=== PATIENT | female | born 1960 | race Caucasian/White ===

== ENCOUNTER 2020-10-20 15:27 | Inpatient (IN) ==
[2020-10-20 16:47] LABS: Basophils % 0.5 %
[2020-10-20] MEDS ORDERED: 0.9 % Sodium Chloride 1,000 ML IVC ONE ×2 (16:51→17:14)
[2020-10-20 16:55] LABS: Bacteria,Urine Few per hpf (None-Few); Bilirubin,Urine Small (Negative); Blood,Urine Small (Negative); Clarity,Urine Turbid (Clear); Color,Urine Orange (Yellow); Glucose,Urine (UA) Normal (Normal); Hyaline Casts,Urine Many per lpf (None Seen); Ketones,Urine Negative (Negative); Leukocyte Esterase,Urine Small (Negative); Mucus,Urine Few per lpf (None-Few); Nitrite,Urine Negative (Negative); PH,Urine 5.5 pH Units (5.0-8.0); Protein,Urine 70 mg/dL (Neg-Trace); Specific Gravity,Urine 1.026 (1.010-1.025); Squamous Epithelial Cell,Urine Moderate per hpf (None-Few)
[2020-10-20 17:12] LABS: BUN/Creatinine Ratio 16 (6-26); Blood Urea Nitrogen 23 mg/dL (8-23); Calcium 8.3 mg/dL (8.6-10.3); Carbon Dioxide 18 mEq/L (23-29); Chloride 105 mEq/L (98-107); Glucose 93 mg/dL (70-105); Osmolality,Calculated 279 (280-300); Potassium 3.8 mEq/L (3.5-5.1); Sodium 133 mEq/L (136-145); Troponin I < 0.03 ng/mL (< 0.04); eGFR For African Americans 44 (> 60); eGFR For Non-African Americans 36 (> 60)
[2020-10-20] MEDS ORDERED: Isovue-370 500 ML BOTTLE IVP ONE ×2 (17:12→17:13)
[2020-10-20 17:26] LABS: Eosinophils # 0.1 K/mcL (0.0-0.6); Eosinophils % 1.3 %; Hematocrit 18.2 % (35.3-44.9); Hemoglobin 6.1 g/dL (11.5-15.4); Immature Granulocytes % 0.3 % (0-4); Lymphocytes # 1.8 K/mcL (0.6-4.6); Lymphocytes % 30.5 %; Mean Corpuscular HGB Conc 33.5 g/dL (31.6-35.5); Mean Corpuscular Hemoglobin 42.1 pg (28.0-33.3); Mean Corpuscular Volume 125.5 fL (83.0-100.0); Monocytes # 0.4 K/mcL (0.0-1.3); Monocytes % 5.9 %; Neutrophils # 3.7 K/mcL (1.6-8.9); Nucleated Red Blood Cells 0.8 /100 WBC (0); Platelet Count 288 K/mcL (140-400); Red Blood Count 1.45 M/mcL (3.82-4.97); Red Cell Distribution Width 20.9 % (11.5-14.5); Segmented Neutrophils % 61.5 %
[2020-10-20 17:31] LABS: Basophilic Stippling 1+ (Not Present); Polychromasia 1+ (Not Present)
[2020-10-20 17:43] LABS: Alanine Aminotransferase 7 Units/L (7-52); Albumin 3.4 g/dL (3.5-5.7); Albumin/Globulin Ratio 0.9 (1.1-2.2); Alkaline Phosphatase 99 Units/L (34-104); Aspartate Amino Transferase 19 Units/L (13-39); Bilirubin,Direct 0.5 mg/dL (0.0-0.2); Bilirubin,Indirect 1.4 mg/dL (0.0-1.0); Bilirubin,Total 1.9 mg/dL (0.3-1.0); Globulin 3.6 g/dL (2.4-3.5); Lipase 42 Units/L (11-82)
[2020-10-20] MEDS ORDERED: Naloxone 0.4 MG/ML INJ IVP PRN (19:48)
[2020-10-20] MEDS ORDERED: Ondansetron 4 MG/2 ML VIAL IVP PRN (19:48)
[2020-10-20 20:11] LABS: C-Reactive Protein < 5 mg/L (Less than 10); Lactate Dehydrogenase 361 Units/L (140-271); Phosphorous 3.3 mg/dL (2.7-4.5)
[2020-10-20] MEDS ORDERED: Pantoprazole 40 MG VIAL IVP ONE (22:04)
[2020-10-20 22:25] LABS: % Iron Saturation 42 % (15-50); Iron 87 mcg/dL (50-170); Transferrin 147 mg/dL (203-362); Uric Acid 9.3 mg/dL (2.3-7.6)
[2020-10-20] MEDS: *HR* Heparin 5,000 UNIT/ML VIAL SQ SCH (22:33)
[2020-10-20] MEDS: *HR* OxyCODONE Immed Rel 5 MG TABLET PO PRN (22:33)
[2020-10-20] MEDS: traZODone 50 MG TABLET PO SCH (22:39)
[2020-10-20 22:54] LABS: Folate 9.5 ng/mL (3.0-16.0)
[2020-10-20 23:15] LABS: Immature Reticulocyte % 33.7 % (11.0-38.0); Retculocyte # 0.17 M/mcL (0.05-0.10)
[2020-10-21 01:03] LABS: BUN/Creatinine Ratio 19 (6-26); Blood Urea Nitrogen 20 mg/dL (8-23); Calcium 7.5 mg/dL (8.6-10.3); Carbon Dioxide 19 mEq/L (23-29); Chloride 112 mEq/L (98-107); Glucose 101 mg/dL (70-105); Osmolality,Calculated 283 (280-300); Potassium 3.8 mEq/L (3.5-5.1); Sodium 135 mEq/L (136-145); eGFR For African Americans > 60 (> 60); eGFR For Non-African Americans 52 (> 60)
[2020-10-21 01:11] LABS: Hepatitis B Surface Antigen Nonreactive (Nonreactive)
[2020-10-21 01:24] LABS: Mean Platelet Volume 9.1 fL (9.4-12.4)
[2020-10-21 01:25] LABS: Mean Corpuscular HGB Conc 33.3 g/dL (31.6-35.5); Mean Corpuscular Hemoglobin 42.7 pg (28.0-33.3); Mean Corpuscular Volume 128.2 fL (83.0-100.0); Platelet Count 223 K/mcL (140-400); Red Blood Count 1.17 M/mcL (3.82-4.97); White Blood Count 4.9 K/mcL (4.3-11.1)
[2020-10-21 01:40] LABS: Hepatitis B Core IgM Nonreactive (Nonreactive)
[2020-10-21 01:41] LABS: Hepatitis A Antibody IgM Nonreactive (Nonreactive); Hepatitis C Virus Antibody Nonreactive (Nonreactive)
[2020-10-21 01:42] LABS: HIV-1&2 Antibody & p24 Ag Nonreactive (Nonreactive)
[2020-10-21] MEDS ORDERED: Cyanocobalamin (B-12) 1,000 MCG/ML VIAL IM ONE (05:02)
[2020-10-21] MEDS: *HR* OxyCODONE Immed Rel 5 MG TABLET PO PRN ×2 (05:38→20:01)
[2020-10-21] MEDS: Pantoprazole 40 MG VIAL IVP SCH ×2 (05:39→18:41)
[2020-10-21] MEDS: *HR* Heparin 5,000 UNIT/ML VIAL SQ SCH ×3 (05:39→20:04)
[2020-10-21] MEDS ORDERED: 0.9 % Sodium Chloride 250 ML ONE ×2 (07:59→12:16)
[2020-10-21] MEDS: (Desvenlafaxine Succinate [Pristiq] 100 MG) PO SCH (09:19)
[2020-10-21] MEDS: Gabapentin 300 MG CAPSULE PO SCH ×3 (09:21→20:00)
[2020-10-21] MEDS: Cyanocobalamin (B-12) 1,000 MCG TABLET PO SCH (09:21)
[2020-10-21] MEDS ORDERED: IVIG (wt based) Privigen 5 GM/50 ML INFUS..BTL IVC SCH (14:00)
[2020-10-21] MEDS ORDERED: Immune Glob, Gamma (Gammagard) 10 GM/100 ML INFUS..BTL IVC ONE (15:00)
[2020-10-21] MEDS ORDERED: Immune Glob, Gamma (Gammagard) 5 GM/50 ML INFUS..BTL IVC ONE (15:00)
[2020-10-21] MEDS ORDERED: Immune Glob, Gamma (Gammagard) 20 GM/200 ML INFUS..BTL IVC ONE ×2 (15:00)
[2020-10-21] MEDS ORDERED: predniSONE 20 MG TABLET PO SCH (17:00)
[2020-10-21 19:34] LABS: Hematocrit 20.5 % (35.3-44.9)
[2020-10-21 19:35] LABS: Hemoglobin 7.2 g/dL (11.5-15.4)
[2020-10-21] MEDS: traZODone 50 MG TABLET PO SCH (20:01)
[2020-10-21] MEDS: Budesonide/Formoterol 80/4.5 1 PUFF INH IH SCH (20:39)
[2020-10-22] MEDS: *HR* OxyCODONE Immed Rel 5 MG TABLET PO PRN ×2 (02:07→20:32)
[2020-10-22] MEDS: *HR* Heparin 5,000 UNIT/ML VIAL SQ SCH ×3 (05:08→20:33)
[2020-10-22] MEDS: Pantoprazole 40 MG VIAL IVP SCH ×2 (05:08→17:52)
[2020-10-22 05:39] LABS: BUN/Creatinine Ratio 19 (6-26); Blood Urea Nitrogen 16 mg/dL (8-23); Calcium 7.9 mg/dL (8.6-10.3); Carbon Dioxide 20 mEq/L (23-29); Chloride 111 mEq/L (98-107); Glucose 97 mg/dL (70-105); Osmolality,Calculated 281 (280-300); Potassium 3.7 mEq/L (3.5-5.1); Sodium 135 mEq/L (136-145); eGFR For African Americans > 60 (> 60); eGFR For Non-African Americans > 60 (> 60)
[2020-10-22 07:08] LABS: Hematocrit 20.6 % (35.3-44.9); Hemoglobin 7.3 g/dL (11.5-15.4); Mean Corpuscular HGB Conc 35.4 g/dL (31.6-35.5); Mean Corpuscular Hemoglobin 40.3 pg (28.0-33.3); Mean Corpuscular Volume 113.8 fL (83.0-100.0); Mean Platelet Volume 9.1 fL (9.4-12.4); Platelet Count 218 K/mcL (140-400); Red Blood Count 1.81 M/mcL (3.82-4.97); Red Cell Distribution Width 29.2 % (11.5-14.5); White Blood Count 4.5 K/mcL (4.3-11.1)
[2020-10-22] MEDS: Budesonide/Formoterol 80/4.5 1 PUFF INH IH SCH ×2 (07:51→20:09)
[2020-10-22] MEDS: Tiotropium 18 MCG inhalation IH SCH (07:52)
[2020-10-22] MEDS: Gabapentin 300 MG CAPSULE PO SCH ×3 (08:46→20:22)
[2020-10-22] MEDS: Cyanocobalamin (B-12) 1,000 MCG/ML VIAL IM SCH (08:46)
[2020-10-22] MEDS: predniSONE 20 MG TABLET PO SCH (08:46)
[2020-10-22] MEDS: Cyanocobalamin (B-12) 1,000 MCG TABLET PO SCH (08:47)
[2020-10-22] MEDS: (Desvenlafaxine Succinate [Pristiq] 100 MG) PO SCH (08:47)
[2020-10-22] MEDS ORDERED: Immune Glob, Gamma (Gammagard) 20 GM/200 ML INFUS..BTL IVC ONE (15:00)
[2020-10-22] MEDS ORDERED: Immune Glob, Gamma (Gammagard) 5 GM/50 ML INFUS..BTL IVC ONE (15:00)
[2020-10-22] MEDS ORDERED: Immune Glob, Gamma (Gammagard) 10 GM/100 ML INFUS..BTL IVC ONE (15:00)
[2020-10-22] MEDS: traZODone 50 MG TABLET PO SCH (20:22)
[2020-10-23 02:49] LABS: Hematocrit 19.8 % (35.3-44.9); Mean Corpuscular HGB Conc 35.4 g/dL (31.6-35.5); Mean Corpuscular Volume 113.1 fL (83.0-100.0); Platelet Count 227 K/mcL (140-400); Red Blood Count 1.75 M/mcL (3.82-4.97); Red Cell Distribution Width 26.6 % (11.5-14.5); White Blood Count 3.3 K/mcL (4.3-11.1)
[2020-10-23 03:09] LABS: BUN/Creatinine Ratio 20 (6-26); Blood Urea Nitrogen 18 mg/dL (8-23); Calcium 8.4 mg/dL (8.6-10.3); Carbon Dioxide 20 mEq/L (23-29); Chloride 110 mEq/L (98-107); Glucose 127 mg/dL (70-105); Osmolality,Calculated 279 (280-300); Potassium 4.1 mEq/L (3.5-5.1); Sodium 133 mEq/L (136-145); eGFR For African Americans > 60 (> 60); eGFR For Non-African Americans > 60 (> 60)
[2020-10-23] MEDS: Pantoprazole 40 MG VIAL IVP SCH ×2 (05:02→17:40)
[2020-10-23] MEDS: *HR* Heparin 5,000 UNIT/ML VIAL SQ SCH ×3 (05:02→21:23)
[2020-10-23] MEDS: (Desvenlafaxine Succinate [Pristiq] 100 MG) PO SCH (07:49)
[2020-10-23] MEDS: Gabapentin 300 MG CAPSULE PO SCH ×3 (07:49→21:23)
[2020-10-23] MEDS: Cyanocobalamin (B-12) 1,000 MCG/ML VIAL IM SCH (07:49)
[2020-10-23] MEDS: predniSONE 20 MG TABLET PO SCH (07:50)
[2020-10-23] MEDS: allopurinoL 100 MG TABLET PO SCH (07:50)
[2020-10-23] MEDS: Cyanocobalamin (B-12) 1,000 MCG TABLET PO SCH (07:52)
[2020-10-23] MEDS: Budesonide/Formoterol 80/4.5 1 PUFF INH IH SCH ×2 (07:55→22:09)
[2020-10-23] MEDS: Tiotropium 18 MCG inhalation IH SCH (07:56)
[2020-10-23] MEDS ORDERED: Immune Glob, Gamma (Gammagard) 5 GM/50 ML INFUS..BTL IVC ONE ×2 (10:15→15:00)
[2020-10-23] MEDS ORDERED: Immune Glob, Gamma (Gammagard) 10 GM/100 ML INFUS..BTL IVC ONE ×2 (11:15→15:00)
[2020-10-23 13:07] LABS: Albumin/Globulin Ratio 0.6 (1.1-2.2); Bilirubin,Direct 0.1 mg/dL (0.0-0.2); Bilirubin,Indirect 0.8 mg/dL (0.0-1.0); Bilirubin,Total 0.9 mg/dL (0.3-1.0); Globulin 5.1 g/dL (2.4-3.5); Total Protein 8.1 g/dL (6.4-8.9); Uric Acid 6.1 mg/dL (2.3-7.6)
[2020-10-23] MEDS ORDERED: Immune Glob, Gamma (Gammagard) 20 GM/200 ML INFUS..BTL IVC ONE ×2 (13:30→15:00)
[2020-10-23 13:59] LABS: Immunoglobulin A 265 mg/dL (68-408); Immunoglobulin G 1840 mg/dL (768-1632); Immunoglobulin M 84 mg/dL (35-263)
[2020-10-23] MEDS ORDERED: SODIUM CHLORIDE/NAHCO3/KCL/PEG 4,000 ML SOLN.RECON PO ONE (17:00)
[2020-10-23] MEDS: traZODone 50 MG TABLET PO SCH (21:23)
[2020-10-24] MEDS: *HR* Heparin 5,000 UNIT/ML VIAL SQ SCH ×3 (06:25→22:03)
[2020-10-24] MEDS: Pantoprazole 40 MG VIAL IVP SCH ×2 (06:27→17:26)
[2020-10-24 07:07] LABS: Hematocrit 20.5 % (35.3-44.9); Hemoglobin 7.1 g/dL (11.5-15.4); Mean Corpuscular HGB Conc 34.6 g/dL (31.6-35.5); Mean Corpuscular Hemoglobin 40.6 pg (28.0-33.3); Mean Corpuscular Volume 117.1 fL (83.0-100.0); Mean Platelet Volume 8.8 fL (9.4-12.4); Platelet Count 210 K/mcL (140-400); Red Blood Count 1.75 M/mcL (3.82-4.97); Red Cell Distribution Width 26.1 % (11.5-14.5); White Blood Count 4.6 K/mcL (4.3-11.1)
[2020-10-24 07:26] LABS: BUN/Creatinine Ratio 18 (6-26); Blood Urea Nitrogen 16 mg/dL (8-23); Calcium 8.3 mg/dL (8.6-10.3); Carbon Dioxide 23 mEq/L (23-29); Chloride 110 mEq/L (98-107); Glucose 92 mg/dL (70-105); Osmolality,Calculated 283 (280-300); Potassium 3.5 mEq/L (3.5-5.1); Sodium 136 mEq/L (136-145); eGFR For African Americans > 60 (> 60); eGFR For Non-African Americans > 60 (> 60)
[2020-10-24] MEDS: predniSONE 20 MG TABLET PO SCH (09:03)
[2020-10-24] MEDS: Gabapentin 300 MG CAPSULE PO SCH ×3 (09:03→22:04)
[2020-10-24] MEDS: (Desvenlafaxine Succinate [Pristiq] 100 MG) PO SCH (09:03)
[2020-10-24] MEDS: Cyanocobalamin (B-12) 1,000 MCG/ML VIAL IM SCH (09:04)
[2020-10-24] MEDS: Cyanocobalamin (B-12) 1,000 MCG TABLET PO SCH (09:04)
[2020-10-24] MEDS: allopurinoL 100 MG TABLET PO SCH (09:04)
[2020-10-24] MEDS: Tiotropium 18 MCG inhalation IH SCH (11:11)
[2020-10-24] MEDS: Budesonide/Formoterol 80/4.5 1 PUFF INH IH SCH ×2 (11:11→20:26)
[2020-10-24] MEDS ORDERED: Lidocaine -MPF 2% 2 ML VIAL ONE (12:45)
[2020-10-24] MEDS ORDERED: Isovue-370 500 ML BOTTLE IVP ONE (17:30)
[2020-10-24] MEDS: traZODone 50 MG TABLET PO SCH (22:04)
[2020-10-25 00:04] LABS: Alpha 2 Globulin (PEP) 0.61 g/dL (0.48-1.05); Beta Globulin (PEP) 0.58 g/dL (0.48-1.10)
[2020-10-25 04:17] LABS: Hematocrit 22.6 % (35.3-44.9); Mean Corpuscular HGB Conc 35.4 g/dL (31.6-35.5); Mean Corpuscular Hemoglobin 41.7 pg (28.0-33.3); Mean Corpuscular Volume 117.7 fL (83.0-100.0); Mean Platelet Volume 8.9 fL (9.4-12.4); Platelet Count 224 K/mcL (140-400); Red Blood Count 1.92 M/mcL (3.82-4.97); Red Cell Distribution Width 24.8 % (11.5-14.5); White Blood Count 5.4 K/mcL (4.3-11.1)
[2020-10-25 04:38] LABS: BUN/Creatinine Ratio 16 (6-26); Blood Urea Nitrogen 16 mg/dL (8-23); Calcium 7.9 mg/dL (8.6-10.3); Carbon Dioxide 21 mEq/L (23-29); Chloride 110 mEq/L (98-107); Glucose 101 mg/dL (70-105); Osmolality,Calculated 285 (280-300); Potassium 3.6 mEq/L (3.5-5.1); Sodium 137 mEq/L (136-145); eGFR For African Americans > 60 (> 60); eGFR For Non-African Americans 57 (> 60)
[2020-10-25] MEDS: Pantoprazole 40 MG VIAL IVP SCH (06:39)
[2020-10-25] MEDS: *HR* Heparin 5,000 UNIT/ML VIAL SQ SCH (06:39)
[2020-10-25] MEDS: (Desvenlafaxine Succinate [Pristiq] 100 MG) PO SCH (07:18)
[2020-10-25] MEDS: Cyanocobalamin (B-12) 1,000 MCG TABLET PO SCH (07:18)
[2020-10-25] MEDS: Gabapentin 300 MG CAPSULE PO SCH (07:18)
[2020-10-25] MEDS: predniSONE 20 MG TABLET PO SCH (07:18)
[2020-10-25] MEDS: Cyanocobalamin (B-12) 1,000 MCG/ML VIAL IM SCH (07:18)
[2020-10-25] MEDS: allopurinoL 100 MG TABLET PO SCH (07:18)
[2020-10-25] MEDS: Tiotropium 18 MCG inhalation IH SCH (07:52)
[2020-10-25] MEDS: Budesonide/Formoterol 80/4.5 1 PUFF INH IH SCH (07:52)
[2020-10-25] MEDS ORDERED: Furosemide 20 MG/2 ML VIAL IVP ONE (08:12)
[2020-10-25 09:45] LABS: IFE Reflexed IFE Done
[2020-10-25 11:23] VITALS: BP 154/78
== END 2020-10-25 15:35 | disposition home or self-care (01) | DRG 809 ==
LOC: 3ANU 15:27 → EMEROOARM 15:27 → SUATTDRO 20:13 → 3ANU 21:38
PROVIDERS: ADMIT Internal Medicine; ATTEND Internal Medicine
PROC: IRLYMPH (2020-10-21 12:00)
PROC: ENDOEBX (2020-10-24 13:00)

== ENCOUNTER 2020-12-05 21:37 | Inpatient (IN) ==
[2020-12-05] MEDS ORDERED: Ondansetron 4 MG/2 ML VIAL IVP ONE (23:17)
[2020-12-05] MEDS ORDERED: Isovue-370 500 ML BOTTLE IVP ONE (23:17)
[2020-12-05] MEDS ORDERED: 0.9 % Sodium Chloride 1,000 ML IV ONE (23:18)
[2020-12-05] MEDS ORDERED: *HR* FentaNYL (PF) 100 MCG/2 ML VIAL IVP ONE (23:18)
[2020-12-06 00:15] LABS: Basophils % 0.3 %; Eosinophils % 0.3 %; Hemoglobin 11.5 g/dL (11.5-15.4); Immature Granulocytes % 0.7 % (0-4); Lymphocytes # 1.7 K/mcL (0.6-4.6); Lymphocytes % 16.2 %; Mean Corpuscular HGB Conc 32.9 g/dL (31.6-35.5); Mean Corpuscular Hemoglobin 33.4 pg (28.0-33.3); Mean Platelet Volume 8.6 fL (9.4-12.4); Monocytes # 0.6 K/mcL (0.0-1.3); Monocytes % 5.9 %; Neutrophils # 7.9 K/mcL (1.6-8.9); Platelet Count 375 K/mcL (140-400); Red Blood Count 3.44 M/mcL (3.82-4.97); Red Cell Distribution Width 11.7 % (11.5-14.5); Segmented Neutrophils % 76.6 %; White Blood Count 10.3 K/mcL (4.3-11.1)
[2020-12-06 00:19] LABS: Mean Corpuscular Volume 101.7 fL (83.0-100.0)
[2020-12-06 00:22] LABS: Albumin 3.8 g/dL (3.5-5.7); Albumin/Globulin Ratio 1.2 (1.1-2.2); Bilirubin,Direct 0.1 mg/dL (0.0-0.2); Bilirubin,Indirect 0.5 mg/dL (0.0-1.0); Bilirubin,Total 0.6 mg/dL (0.3-1.0); Globulin 3.1 g/dL (2.4-3.5); Total Protein 6.9 g/dL (6.4-8.9)
[2020-12-06 00:23] LABS: Calcium 9.5 mg/dL (8.6-10.3); Potassium 4.6 mEq/L (3.5-5.1)
[2020-12-06 02:30] LABS: Bilirubin,Urine Negative (Negative); Blood,Urine Trace (Negative); Clarity,Urine Clear (Clear); Color,Urine Light-Yellow (Yellow); Glucose,Urine (UA) Normal (Normal); Ketones,Urine Negative (Negative); Leukocyte Esterase,Urine Negative (Negative); Mucus,Urine Few per lpf (None-Few); Nitrite,Urine Negative (Negative); PH,Urine 8.5 pH Units (5.0-8.0); Protein,Urine 50 mg/dL (Neg-Trace); Specific Gravity,Urine > 1.030 (1.010-1.025); Squamous Epithelial Cell,Urine Few per hpf (None-Few); Urobilinogen,Urine Normal (Normal); WBC,Urine 0-3 per hpf (0-3)
[2020-12-06] MEDS ORDERED: cefTRIAXone 1,000 MG in Water for inj. (sterile) 10 ML IVP ONE (03:19)
[2020-12-06 03:52] LABS: Prothrombin Time 11.4 Seconds (9.4-12.1)
[2020-12-06] MEDS ORDERED: Acetaminophen 325 MG TABLET PO PRN (04:13)
[2020-12-06] MEDS ORDERED: Ondansetron 4 MG/2 ML VIAL IVP PRN (04:13)
[2020-12-06] MEDS ORDERED: Naloxone 0.4 MG/ML INJ IVP PRN (04:13)
[2020-12-06] MEDS: *HR* HYDROcodone/Acet 5/325 mg TABLET PO PRN ×3 (08:44→23:45)
[2020-12-06 08:46] LABS: Basophils % 0.3 %; Eosinophils # 0.1 K/mcL (0.0-0.6); Eosinophils % 0.5 %; Hematocrit 35.3 % (35.3-44.9); Hemoglobin 11.2 g/dL (11.5-15.4); Immature Granulocytes % 0.4 % (0-4); Lymphocytes % 16.2 %; Mean Corpuscular HGB Conc 31.7 g/dL (31.6-35.5); Mean Corpuscular Hemoglobin 32.9 pg (28.0-33.3); Mean Corpuscular Volume 103.8 fL (83.0-100.0); Mean Platelet Volume 8.4 fL (9.4-12.4); Monocytes # 0.9 K/mcL (0.0-1.3); Neutrophils # 9.3 K/mcL (1.6-8.9); Platelet Count 409 K/mcL (140-400); Red Cell Distribution Width 11.7 % (11.5-14.5); Segmented Neutrophils % 75.6 %; White Blood Count 12.4 K/mcL (4.3-11.1)
[2020-12-06] MEDS: 0.9 % Sodium Chloride 1,000 ML IVC SCH ×2 (09:02→22:24)
[2020-12-06] MEDS: MetroNIDAZOLE 500 MG/100 ML 500 MG/100 ML BAG IVPB SCH ×3 (09:02→23:45)
[2020-12-06 11:35] LABS: Sodium, Urine 187.6 mEq/L
[2020-12-06 13:21] LABS: Uric Acid 5.7 mg/dL (2.3-7.6)
[2020-12-06 13:56] LABS: Hepatitis B Surface Antigen Nonreactive (Nonreactive)
[2020-12-06 14:28] LABS: Hepatitis C Virus Antibody Nonreactive (Nonreactive)
[2020-12-06 14:29] LABS: Hepatitis B Core IgM Nonreactive (Nonreactive)
[2020-12-06 14:30] LABS: Hepatitis A Antibody IgM Nonreactive (Nonreactive)
[2020-12-06 16:26] LABS: Protein/Creatinine Ratio,Urine 0.84 mg/mg (0.00-0.20)
[2020-12-06 16:28] LABS: Hematocrit 33.8 % (35.3-44.9); Hemoglobin 10.7 g/dL (11.5-15.4)
[2020-12-07] MEDS: cefTRIAXone 1,000 MG in Water for inj. (sterile) 10 ML IVP SCH (02:22)
[2020-12-07 04:58] LABS: Basophils % 0.3 %; Eosinophils # 0.1 K/mcL (0.0-0.6); Eosinophils % 0.5 %; Hematocrit 33.9 % (35.3-44.9); Hemoglobin 10.5 g/dL (11.5-15.4); Immature Granulocytes % 0.3 % (0-4); Lymphocytes # 1.5 K/mcL (0.6-4.6); Lymphocytes % 13.6 %; Mean Corpuscular Hemoglobin 32.3 pg (28.0-33.3); Mean Corpuscular Volume 104.3 fL (83.0-100.0); Mean Platelet Volume 8.6 fL (9.4-12.4); Monocytes # 0.8 K/mcL (0.0-1.3); Monocytes % 7.3 %; Neutrophils # 8.3 K/mcL (1.6-8.9); Platelet Count 339 K/mcL (140-400); Red Blood Count 3.25 M/mcL (3.82-4.97); Red Cell Distribution Width 11.6 % (11.5-14.5); White Blood Count 10.6 K/mcL (4.3-11.1)
[2020-12-07 05:18] LABS: Calcium 8.7 mg/dL (8.6-10.3); Potassium 4.7 mEq/L (3.5-5.1)
[2020-12-07] MEDS: MetroNIDAZOLE 500 MG/100 ML 500 MG/100 ML BAG IVPB SCH ×3 (08:58→23:26)
[2020-12-07] MEDS: 0.9 % Sodium Chloride 1,000 ML IVC SCH (11:44)
[2020-12-07] MEDS ORDERED: traZODone 50 MG TABLET PO PRN (14:12)
[2020-12-07 15:07] LABS: Hematocrit 30.3 % (35.3-44.9); Hemoglobin 9.9 g/dL (11.5-15.4)
[2020-12-07 15:41] LABS: Adenovirus Not Detected (Not Detect); Bordetella Pertussis Not Detected (Not Detect); Chlamydophila pneumoniae Not Detected (Not Detect); Coronavirus 229E Not Detected (Not Detect); Coronavirus HKU1 Not Detected (Not Detect); Coronavirus NL63 Not Detected (Not Detect); Coronavirus OC43 Not Detected (Not Detect); Human Metapneumovirus Not Detected (Not Detect); Human Rhinovirus/Enterovirus Not Detected (Not Detect); Influenza A Subtype 2009 H1 Not Detected (Not Detect); Influenza B Not Detected (Not Detect); Mycoplasma pneumoniae Not Detected (Not Detect); Parainfluenza Virus 1 Not Detected (Not Detect); Parainfluenza Virus 2 Not Detected (Not Detect); Parainfluenza Virus 3 Not Detected (Not Detect); Parainfluenza Virus 4 Not Detected (Not Detect); Respiratory Syncytial Virus Not Detected (Not Detect); SARS-CoV-2 Not Detected (Not Detect)
[2020-12-07] MEDS: *HR* OxyCODONE Immed Rel 5 MG TABLET PO PRN (19:40)
[2020-12-07] MEDS: Methylphenidate HCl 10 MG TABLET PO SCH (20:26)
[2020-12-07] MEDS ORDERED: Gabapentin 300 MG CAPSULE PO SCH (21:00)
[2020-12-07 23:59] LABS: Hematocrit 29.7 % (35.3-44.9); Hemoglobin 9.3 g/dL (11.5-15.4)
[2020-12-08] MEDS: 0.9 % Sodium Chloride 1,000 ML IVC SCH (00:33)
[2020-12-08] MEDS: *HR* OxyCODONE Immed Rel 5 MG TABLET PO PRN (01:40)
[2020-12-08] MEDS: cefTRIAXone 1,000 MG in Water for inj. (sterile) 10 ML IVP SCH (05:10)
[2020-12-08] MEDS: Methylphenidate HCl 10 MG TABLET PO SCH ×2 (05:10→16:31)
[2020-12-08 05:50] LABS: Basophils % 0.4 %; Eosinophils # 0.1 K/mcL (0.0-0.6); Eosinophils % 0.9 %; Hematocrit 31.7 % (35.3-44.9); Hemoglobin 9.9 g/dL (11.5-15.4); Immature Granulocytes % 0.3 % (0-4); Lymphocytes # 1.2 K/mcL (0.6-4.6); Lymphocytes % 12.9 %; Mean Corpuscular HGB Conc 31.2 g/dL (31.6-35.5); Mean Corpuscular Hemoglobin 32.1 pg (28.0-33.3); Mean Corpuscular Volume 102.9 fL (83.0-100.0); Mean Platelet Volume 8.6 fL (9.4-12.4); Monocytes # 0.7 K/mcL (0.0-1.3); Monocytes % 7.6 %; Neutrophils # 7.4 K/mcL (1.6-8.9); Platelet Count 315 K/mcL (140-400); Red Blood Count 3.08 M/mcL (3.82-4.97); Red Cell Distribution Width 11.7 % (11.5-14.5); Segmented Neutrophils % 77.9 %; White Blood Count 9.5 K/mcL (4.3-11.1)
[2020-12-08 05:51] LABS: INR 1.1; Prothrombin Time 12.2 Seconds (9.4-12.1)
[2020-12-08 06:09] LABS: Calcium 8.6 mg/dL (8.6-10.3); Magnesium 2.1 mg/dL (1.6-2.6); Potassium 4.1 mEq/L (3.5-5.1)
[2020-12-08] MEDS: MetroNIDAZOLE 500 MG/100 ML 500 MG/100 ML BAG IVPB SCH ×3 (08:44→16:41)
[2020-12-08] MEDS ORDERED: (Brexpiprazole [Rexulti] 1 MG) PO SCH (09:00)
[2020-12-08] MEDS ORDERED: (Desvenlafaxine Succinate [Pristiq] 100 MG) PO SCH (09:00)
[2020-12-08] MEDS ORDERED: Cyanocobalamin (B-12) 1,000 MCG TABLET PO SCH (09:00)
[2020-12-08 15:04] VITALS: BP 125/74
[2020-12-08 16:17] LABS: Hematocrit 32.7 % (35.3-44.9); Hemoglobin 10.3 g/dL (11.5-15.4)
[2020-12-08] MEDS ORDERED: Gabapentin 300 MG CAPSULE PO SCH (21:00)
== END 2020-12-08 17:00 | disposition home or self-care (01) | DRG 920 ==
LOC: 3ANU 21:37 → EMEROOARM 21:37 → SUATTDRO 12-06 03:57 → 3ANU 12-06 05:14
PROVIDERS: ADMIT Student in an Organized Health Care Education/Training Program; ATTEND Internal Medicine

== ENCOUNTER 2020-12-29 08:44 | Observation (INO) ==
[2020-12-29] MEDS ORDERED: Ondansetron 4 MG/2 ML VIAL IVP ONE ×2 (09:12→14:46)
[2020-12-29] MEDS ORDERED: 0.9 % Sodium Chloride 1,000 ML IVC ONE (09:12)
[2020-12-29 09:26] LABS: Hematocrit 29.4 % (35.3-44.9); Hemoglobin 8.7 g/dL (11.5-15.4); Mean Corpuscular HGB Conc 29.6 g/dL (31.6-35.5); Mean Corpuscular Hemoglobin 30.2 pg (28.0-33.3); Mean Corpuscular Volume 102.1 fL (83.0-100.0); Mean Platelet Volume 9.2 fL (9.4-12.4); Platelet Count 421 K/mcL (140-400); Red Blood Count 2.88 M/mcL (3.82-4.97); Red Cell Distribution Width 13.2 % (11.5-14.5); White Blood Count 8.4 K/mcL (4.3-11.1)
[2020-12-29 09:46] LABS: Alanine Aminotransferase 8 Units/L (7-52); Albumin 3.3 g/dL (3.5-5.7); Albumin/Globulin Ratio 0.9 (1.1-2.2); Alkaline Phosphatase 153 Units/L (34-104); Aspartate Amino Transferase 12 Units/L (13-39); BUN/Creatinine Ratio 12 (6-26); Bilirubin,Direct 0.1 mg/dL (0.0-0.2); Bilirubin,Indirect 0.7 mg/dL (0.0-1.0); Bilirubin,Total 0.8 mg/dL (0.3-1.0); Blood Urea Nitrogen 15 mg/dL (8-23); Calcium 8.7 mg/dL (8.6-10.3); Carbon Dioxide 19 mEq/L (23-29); Chloride 113 mEq/L (98-107); Globulin 3.6 g/dL (2.4-3.5); Glucose 106 mg/dL (70-105); Lipase 46 Units/L (11-82); Osmolality,Calculated 293 (280-300); Sodium 141 mEq/L (136-145); Total Protein 6.9 g/dL (6.4-8.9); eGFR For African Americans 52 (> 60); eGFR For Non-African Americans 43 (> 60)
[2020-12-29 11:06] LABS: Bacteria,Urine Few per hpf (None-Few); Bilirubin,Urine Negative (Negative); Blood,Urine Moderate (Negative); Clarity,Urine Clear (Clear); Color,Urine Yellow (Yellow); Glucose,Urine (UA) Normal (Normal); Hyaline Casts,Urine Many per lpf (None Seen); Ketones,Urine Negative (Negative); Leukocyte Esterase,Urine Negative (Negative); Mucus,Urine Few per lpf (None-Few); Nitrite,Urine Negative (Negative); PH,Urine 5.5 pH Units (5.0-8.0); Protein,Urine 50 mg/dL (Neg-Trace); Specific Gravity,Urine 1.023 (1.010-1.025); Squamous Epithelial Cell,Urine Few per hpf (None-Few); Urobilinogen,Urine Normal (Normal)
[2020-12-29 14:53] LABS: Troponin I < 0.03 ng/mL (< 0.04)
[2020-12-29] MEDS ORDERED: Pantoprazole 40 MG VIAL IVP ONE (15:07)
[2020-12-29] MEDS ORDERED: Prochlorperazine 10 MG/2 ML VIAL IVP PRN (16:44)
[2020-12-29] MEDS ORDERED: Naloxone 0.4 MG/ML INJ IVP PRN (16:48)
[2020-12-29] MEDS: 0.9 % Sodium Chloride 1,000 ML IVC SCH (17:02)
[2020-12-29] MEDS: cefTRIAXone 1,000 MG in 0.9 % Sodium Chloride Mini Bag 100 ML IVPB SCH (17:46)
[2020-12-29 18:17] LABS: Hematocrit 25.3 % (35.3-44.9); Hemoglobin 7.6 g/dL (11.5-15.4)
[2020-12-29] MEDS ORDERED: Acetaminophen IV 1,000 MG/100 ML BAG IVPB ONE (20:10)
[2020-12-29] MEDS: Gabapentin 300 MG CAPSULE PO SCH ×2 (20:50→21:31)
[2020-12-29 23:13] LABS: Hematocrit 24.2 % (35.3-44.9); Hemoglobin 7.2 g/dL (11.5-15.4)
[2020-12-30] MEDS: 0.9 % Sodium Chloride 1,000 ML IVC SCH (03:59)
[2020-12-30] MEDS ORDERED: Ondansetron 4 MG/2 ML VIAL IVP PRN (04:14)
[2020-12-30 04:56] LABS: Hematocrit 24.6 % (35.3-44.9); Hemoglobin 7.3 g/dL (11.5-15.4); Mean Corpuscular HGB Conc 29.7 g/dL (31.6-35.5); Mean Corpuscular Hemoglobin 30.4 pg (28.0-33.3); Mean Corpuscular Volume 102.5 fL (83.0-100.0); Mean Platelet Volume 9.2 fL (9.4-12.4); Platelet Count 290 K/mcL (140-400); Red Cell Distribution Width 13.1 % (11.5-14.5); White Blood Count 6.5 K/mcL (4.3-11.1)
[2020-12-30 05:15] LABS: INR 1.2; Prothrombin Time 14.3 Seconds (9.4-12.1)
[2020-12-30 05:18] LABS: % Iron Saturation 23 % (15-50); Activated Partial Thrombo Time 28.9 Seconds (26.0-36.0); BUN/Creatinine Ratio 10 (6-26); Blood Urea Nitrogen 11 mg/dL (8-23); Calcium 8.1 mg/dL (8.6-10.3); Carbon Dioxide 17 mEq/L (23-29); Chloride 117 mEq/L (98-107); Chol/HDL Ratio 3.2 (0-4.9); Cholesterol 77 mg/dL (< 200); Glucose 96 mg/dL (70-105); HDL Cholesterol 24 mg/dL (40-59); Iron 40 mcg/dL (50-170); LDL Cholesterol,Calculated 37 mg/dL (< 100); Magnesium 1.4 mg/dL (1.6-2.6); Osmolality,Calculated 291 (280-300); Potassium 3.7 mEq/L (3.5-5.1); Sodium 141 mEq/L (136-145); Transferrin 125 mg/dL (203-362); Triglycerides 80 mg/dL (< 150); eGFR For African Americans > 60 (> 60); eGFR For Non-African Americans 51 (> 60)
[2020-12-30 05:33] LABS: Ferritin 329 ng/mL (10-120)
[2020-12-30 05:39] LABS: Folate 8.2 ng/mL (3.0-16.0)
[2020-12-30] MEDS: Gabapentin 300 MG CAPSULE PO SCH ×2 (08:58→22:04)
[2020-12-30] MEDS: Cyanocobalamin (B-12) 1,000 MCG TABLET PO SCH (09:00)
[2020-12-30] MEDS: Pantoprazole 40 MG VIAL IVP SCH ×2 (09:10→18:03)
[2020-12-30] MEDS: cefTRIAXone 1,000 MG in 0.9 % Sodium Chloride Mini Bag 100 ML IVPB SCH (10:01)
[2020-12-30 10:15] LABS: Estimated Average Glucose 94 mg/dl; Hemoglobin A1C 4.9 %
[2020-12-30] MEDS ORDERED: traZODone 50 MG TABLET PO PRN (10:22)
[2020-12-30 10:53] LABS: Hematocrit 26.4 % (35.3-44.9); Hemoglobin 7.8 g/dL (11.5-15.4)
[2020-12-30] MEDS: metroNIDAZOLE 500 MG TABLET PO SCH ×2 (11:13→22:04)
[2020-12-30] MEDS: Methylphenidate HCl 10 MG TABLET PO SCH ×2 (14:22→14:25)
[2020-12-30] MEDS: (Desvenlafaxine Succinate [Pristiq] 100 MG) PO SCH (15:55)
[2020-12-31 02:36] LABS: Hematocrit 26.6 % (35.3-44.9); Hemoglobin 7.8 g/dL (11.5-15.4); Mean Corpuscular HGB Conc 29.3 g/dL (31.6-35.5); Mean Corpuscular Hemoglobin 29.9 pg (28.0-33.3); Mean Corpuscular Volume 101.9 fL (83.0-100.0); Mean Platelet Volume 9.3 fL (9.4-12.4); Platelet Count 288 K/mcL (140-400); Red Blood Count 2.61 M/mcL (3.82-4.97); Red Cell Distribution Width 13.2 % (11.5-14.5); White Blood Count 8.4 K/mcL (4.3-11.1)
[2020-12-31 02:43] LABS: Alanine Aminotransferase 5 Units/L (7-52); Albumin 2.8 g/dL (3.5-5.7); Alkaline Phosphatase 122 Units/L (34-104); Aspartate Amino Transferase 9 Units/L (13-39); BUN/Creatinine Ratio 9 (6-26); Bilirubin,Total 0.7 mg/dL (0.3-1.0); Blood Urea Nitrogen 9 mg/dL (8-23); Calcium 8.4 mg/dL (8.6-10.3); Carbon Dioxide 19 mEq/L (23-29); Chloride 112 mEq/L (98-107); Globulin 2.8 g/dL (2.4-3.5); Glucose 97 mg/dL (70-105); Magnesium 1.6 mg/dL (1.6-2.6); Osmolality,Calculated 283 (280-300); Phosphorous 2.9 mg/dL (2.7-4.5); Potassium 3.6 mEq/L (3.5-5.1); Sodium 137 mEq/L (136-145); Total Protein 5.6 g/dL (6.4-8.9); eGFR For African Americans > 60 (> 60); eGFR For Non-African Americans 60 (> 60)
[2020-12-31] MEDS: Pantoprazole 40 MG VIAL IVP SCH (05:07)
[2020-12-31] MEDS: Methylphenidate HCl 10 MG TABLET PO SCH (05:08)
[2020-12-31 08:07] VITALS: BP 110/72
[2020-12-31] MEDS ORDERED: PANTOPRAZOLE SODIUM 20 MG PO SCH (09:00)
[2020-12-31] MEDS ORDERED: Linezolid 600 MG TABLET PO ONE (10:01)
[2020-12-31] MEDS: cefTRIAXone 1,000 MG in 0.9 % Sodium Chloride Mini Bag 100 ML IVPB SCH (10:38)
[2020-12-31] MEDS: Gabapentin 300 MG CAPSULE PO SCH (10:40)
[2020-12-31] MEDS: metroNIDAZOLE 500 MG TABLET PO SCH (10:40)
[2020-12-31] MEDS: Cyanocobalamin (B-12) 1,000 MCG TABLET PO SCH (10:41)
[2020-12-31] MEDS: (Desvenlafaxine Succinate [Pristiq] 100 MG) PO SCH (10:42)
== END 2020-12-31 12:45 | disposition home or self-care (01) ==
LOC: 3ANU 08:44 → EMEROOARM 08:44 → SUATTDRO 15:53 → 3ANU 16:36
PROVIDERS: ADMIT Student in an Organized Health Care Education/Training Program; ATTEND Internal Medicine

== ENCOUNTER 2021-01-04 12:00 | Inpatient (IN) ==
[2021-01-04 12:49] LABS: Basophils # 0.1 K/mcL (0.0-0.2); Basophils % 0.6 %; Eosinophils # 0.1 K/mcL (0.0-0.6); Eosinophils % 0.9 %; Hematocrit 31.8 % (35.3-44.9); Immature Granulocytes % 0.3 % (0-4); Lymphocytes % 10.9 %; Mean Corpuscular HGB Conc 30.5 g/dL (31.6-35.5); Mean Corpuscular Hemoglobin 30.4 pg (28.0-33.3); Mean Corpuscular Volume 99.7 fL (83.0-100.0); Mean Platelet Volume 9.8 fL (9.4-12.4); Monocytes # 0.4 K/mcL (0.0-1.3); Monocytes % 4.5 %; Neutrophils # 7.7 K/mcL (1.6-8.9); Platelet Count 330 K/mcL (140-400); Red Blood Count 3.19 M/mcL (3.82-4.97); Red Cell Distribution Width 13.7 % (11.5-14.5); Segmented Neutrophils % 82.8 %; White Blood Count 9.3 K/mcL (4.3-11.1)
[2021-01-04 12:50] LABS: Hemoglobin 9.7 g/dL (11.5-15.4)
[2021-01-04 12:55] LABS: BUN/Creatinine Ratio 8 (6-26); Blood Urea Nitrogen 8 mg/dL (8-23); Calcium 8.4 mg/dL (8.6-10.3); Carbon Dioxide 21 mEq/L (23-29); Chloride 104 mEq/L (98-107); Glucose 124 mg/dL (70-105); Magnesium 1.2 mg/dL (1.6-2.6); Osmolality,Calculated 282 (280-300); Potassium 3.2 mEq/L (3.5-5.1); Sodium 136 mEq/L (136-145); Troponin I < 0.03 ng/mL (< 0.04); eGFR For African Americans > 60 (> 60); eGFR For Non-African Americans 56 (> 60)
[2021-01-04] MEDS ORDERED: Isovue-370 500 ML BOTTLE IVP ONE (13:26)
[2021-01-04] MEDS ORDERED: Acetaminophen 325 MG TABLET PO PRN (15:03)
[2021-01-04] MEDS ORDERED: Naloxone 0.4 MG/ML INJ IVP PRN (15:03)
[2021-01-04] MEDS ORDERED: Perflutren Lipid Microsphere 1.3 ML in 0.9 % Sodium Chloride 8.7 ML IVP PRN (15:06)
[2021-01-04] MEDS ORDERED: *HR* Metoprolol 5 MG/5 ML VIAL IVP PRN (15:06)
[2021-01-04] MEDS: Linezolid 600 MG TABLET PO SCH (20:58)
[2021-01-05 01:34] LABS: Basophils # 0.1 K/mcL (0.0-0.2); Basophils % 0.7 %; Eosinophils # 0.1 K/mcL (0.0-0.6); Eosinophils % 1.3 %; Hematocrit 28.4 % (35.3-44.9); Hemoglobin 8.6 g/dL (11.5-15.4); Immature Granulocytes % 0.3 % (0-4); Lymphocytes # 1.7 K/mcL (0.6-4.6); Lymphocytes % 22.4 %; Mean Corpuscular HGB Conc 30.3 g/dL (31.6-35.5); Mean Corpuscular Hemoglobin 29.9 pg (28.0-33.3); Mean Corpuscular Volume 98.6 fL (83.0-100.0); Mean Platelet Volume 9.7 fL (9.4-12.4); Monocytes # 0.5 K/mcL (0.0-1.3); Neutrophils # 5.1 K/mcL (1.6-8.9); Platelet Count 269 K/mcL (140-400); Red Blood Count 2.88 M/mcL (3.82-4.97); Red Cell Distribution Width 13.7 % (11.5-14.5); Segmented Neutrophils % 68.3 %; White Blood Count 7.4 K/mcL (4.3-11.1)
[2021-01-05 01:51] LABS: BUN/Creatinine Ratio 9 (6-26); Blood Urea Nitrogen 9 mg/dL (8-23); Calcium 8.2 mg/dL (8.6-10.3); Carbon Dioxide 21 mEq/L (23-29); Chloride 107 mEq/L (98-107); Glucose 109 mg/dL (70-105); Magnesium 1.8 mg/dL (1.6-2.6); Osmolality,Calculated 279 (280-300); Potassium 3.9 mEq/L (3.5-5.1); Sodium 135 mEq/L (136-145); eGFR For African Americans > 60 (> 60); eGFR For Non-African Americans 54 (> 60)
[2021-01-05] MEDS: Linezolid 600 MG TABLET PO SCH (08:21)
[2021-01-05] MEDS ORDERED: *HR* OxyCODONE Immed Rel 5 MG TABLET PO ONE (08:22)
[2021-01-05] MEDS ORDERED: DESVENLAFAXINE SUCCINATE 100 MG PO SCH (09:00)
[2021-01-05] MEDS: Cyanocobalamin (B-12) 1,000 MCG TABLET PO SCH ×2 (09:32→11:32)
[2021-01-05] MEDS: Gabapentin 300 MG CAPSULE PO SCH ×4 (09:32→19:59)
[2021-01-05 09:49] LABS: Estimated Average Glucose 88 mg/dl; Hemoglobin A1C 4.7 %
[2021-01-05] MEDS ORDERED: tiZANidine 4 MG TABLET PO PRN (10:15)
[2021-01-05] MEDS: DilTIAZem CD (24hr) 180 MG CAP.ER.24H PO SCH (11:32)
[2021-01-05] MEDS: Apixaban 5 MG TABLET PO SCH ×2 (11:32→19:59)
[2021-01-05 16:56] LABS: Bilirubin,Urine Negative (Negative); Blood,Urine Moderate (Negative); Clarity,Urine Clear (Clear); Color,Urine Yellow (Yellow); Glucose,Urine (UA) Normal (Normal); Ketones,Urine Negative (Negative); Leukocyte Esterase,Urine Negative (Negative); Mucus,Urine Few per lpf (None-Few); Nitrite,Urine Negative (Negative); PH,Urine 5.5 pH Units (5.0-8.0); Protein,Urine 70 mg/dL (Neg-Trace); Specific Gravity,Urine > 1.030 (1.010-1.025); Squamous Epithelial Cell,Urine Moderate per hpf (None-Few); Urobilinogen,Urine Normal (Normal)
[2021-01-05 17:56] LABS: Adenovirus Not Detected (Not Detect); Bordetella Pertussis Not Detected (Not Detect); Chlamydophila pneumoniae Not Detected (Not Detect); Coronavirus 229E Not Detected (Not Detect); Coronavirus HKU1 Not Detected (Not Detect); Coronavirus NL63 Not Detected (Not Detect); Coronavirus OC43 Not Detected (Not Detect); Human Metapneumovirus Not Detected (Not Detect); Human Rhinovirus/Enterovirus Not Detected (Not Detect); Influenza A Subtype 2009 H1 Not Detected (Not Detect); Influenza B Not Detected (Not Detect); Mycoplasma pneumoniae Not Detected (Not Detect); Parainfluenza Virus 1 Not Detected (Not Detect); Parainfluenza Virus 2 Not Detected (Not Detect); Parainfluenza Virus 3 Not Detected (Not Detect); Parainfluenza Virus 4 Not Detected (Not Detect); Respiratory Syncytial Virus Not Detected (Not Detect); SARS-CoV-2 Not Detected (Not Detect)
[2021-01-06 01:10] LABS: Basophils # 0.1 K/mcL (0.0-0.2); Basophils % 0.6 %; Eosinophils # 0.1 K/mcL (0.0-0.6); Eosinophils % 0.6 %; Hematocrit 26.1 % (35.3-44.9); Immature Granulocytes % 0.3 % (0-4); Lymphocytes # 1.9 K/mcL (0.6-4.6); Lymphocytes % 20.6 %; Mean Corpuscular HGB Conc 30.7 g/dL (31.6-35.5); Mean Corpuscular Hemoglobin 29.6 pg (28.0-33.3); Mean Corpuscular Volume 96.7 fL (83.0-100.0); Mean Platelet Volume 8.9 fL (9.4-12.4); Monocytes # 0.6 K/mcL (0.0-1.3); Monocytes % 6.9 %; Neutrophils # 6.4 K/mcL (1.6-8.9); Platelet Count 237 K/mcL (140-400)
[2021-01-06 01:29] LABS: Calcium 8.1 mg/dL (8.6-10.3); Potassium 4.1 mEq/L (3.5-5.1)
[2021-01-06] MEDS ORDERED: 0.9 % Sodium Chloride 1,000 ML ONE (07:15)
[2021-01-06] MEDS ORDERED: 0.9 % Sodium Chloride 1,000 ML IVC ONE ×2 (07:16→08:53)
[2021-01-06] MEDS: Cyanocobalamin (B-12) 1,000 MCG TABLET PO SCH ×2 (08:36→12:09)
[2021-01-06] MEDS: Apixaban 5 MG TABLET PO SCH ×2 (08:36→12:09)
[2021-01-06] MEDS: Gabapentin 300 MG CAPSULE PO SCH (08:36)
[2021-01-06] MEDS: DilTIAZem CD (24hr) 180 MG CAP.ER.24H PO SCH (08:45)
[2021-01-06 09:34] LABS: Basophils # 0.1 K/mcL (0.0-0.2); Basophils % 0.6 %; Eosinophils # 0.1 K/mcL (0.0-0.6); Eosinophils % 0.9 %; Hematocrit 25.6 % (35.3-44.9); Hemoglobin 7.6 g/dL (11.5-15.4); Immature Granulocytes % 0.2 % (0-4); Lymphocytes # 1.1 K/mcL (0.6-4.6); Lymphocytes % 12.7 %; Mean Corpuscular HGB Conc 29.7 g/dL (31.6-35.5); Mean Corpuscular Hemoglobin 29.9 pg (28.0-33.3); Mean Corpuscular Volume 100.8 fL (83.0-100.0); Mean Platelet Volume 9.5 fL (9.4-12.4); Monocytes # 0.7 K/mcL (0.0-1.3); Monocytes % 7.8 %; Neutrophils # 6.9 K/mcL (1.6-8.9); Platelet Count 225 K/mcL (140-400); Red Blood Count 2.54 M/mcL (3.82-4.97); Segmented Neutrophils % 77.8 %; White Blood Count 8.9 K/mcL (4.3-11.1)
[2021-01-06] MEDS ORDERED: Ipratropium/Albuterol Neb 3 ML IH PRN (09:44)
[2021-01-06] MEDS ORDERED: predniSONE 20 MG TABLET PO SCH (09:45)
[2021-01-06 09:51] LABS: ABG Base Excess -4 mEq/L (-2 to 3); ABG HCO3 21 mEq/L (21-27); ABG Oxygen Saturation 93 % (95-98); ABG PCO2 36 mmHg (35-45); ABG PH 7.37 pH Units (7.32-7.45); ABG PO2 70 mmHg (85-104); ABG TCO2 22 mEq/L (20-26)
[2021-01-06] MEDS ORDERED: Ipratropium/Albuterol Neb 3 ML IH ONE (09:53)
[2021-01-06] MEDS ORDERED: Ipratropium/Albuterol Neb 3 ML ONE (09:59)
[2021-01-06] MEDS ORDERED: Budesonide/Formoterol 160/4.5 1 PUFF INH IH SCH (10:00)
[2021-01-06] MEDS ORDERED: cefTRIAXone 1,000 MG in Water for inj. (sterile) 10 ML IVP SCH (10:00)
[2021-01-06] MEDS ORDERED: Azithromycin 500 MG in 0.9 % Sodium Chloride 250 ML IVPB SCH (10:00)
[2021-01-06] MEDS ORDERED: Levalbuterol Neb 1.25 MG/3 ML IH SCH (10:00)
[2021-01-06] MEDS ORDERED: Ipratropium/Albuterol Neb 3 ML IH SCH (10:00)
[2021-01-06 10:15] LABS: Alanine Aminotransferase < 3 Units/L (7-52); Albumin 2.6 g/dL (3.5-5.7); Alkaline Phosphatase 94 Units/L (34-104); Aspartate Amino Transferase 6 Units/L (13-39); BUN/Creatinine Ratio 11 (6-26); Bilirubin,Total 0.5 mg/dL (0.3-1.0); Blood Urea Nitrogen 19 mg/dL (8-23); Calcium 7.7 mg/dL (8.6-10.3); Carbon Dioxide 22 mEq/L (23-29); Chloride 105 mEq/L (98-107); Globulin 2.7 g/dL (2.4-3.5); Glucose 122 mg/dL (70-105); Osmolality,Calculated 280 (280-300); Potassium 5.1 mEq/L (3.5-5.1); Sodium 133 mEq/L (136-145); Total Protein 5.3 g/dL (6.4-8.9); Troponin I < 0.03 ng/mL (< 0.04); eGFR For African Americans 35 (> 60); eGFR For Non-African Americans 29 (> 60)
[2021-01-06] MEDS ORDERED: Albumin 25% 25gram/100mL 25 GM/100 ML IV.SOLN IVPB ONE (11:16)
[2021-01-06] MEDS: Ipratropium/Albuterol Neb 3 ML IH SCH ×2 (11:17→15:33)
[2021-01-06] MEDS ORDERED: methylPREDNISolone 125 MG/2 ML VIAL IVP ONE (12:02)
[2021-01-06 12:14] LABS: Immature Reticulocyte % 13.5 % (11.0-38.0); Reticulocyte % 3.9 % (1.6-2.8)
[2021-01-06 12:45] LABS: Lactate Dehydrogenase 385 Units/L (140-271)
[2021-01-06 15:00] LABS: Albumin 2.4 g/dL (3.5-5.7); Albumin/Globulin Ratio 0.9 (1.1-2.2); Bilirubin,Direct 0.1 mg/dL (0.0-0.2); Bilirubin,Indirect 0.3 mg/dL (0.0-1.0); Bilirubin,Total 0.4 mg/dL (0.3-1.0); Globulin 2.8 g/dL (2.4-3.5); Total Protein 5.2 g/dL (6.4-8.9)
[2021-01-06] MEDS ORDERED: Gabapentin 300 MG CAPSULE PO SCH (15:00)
[2021-01-06] MEDS ORDERED: MethylPREDNISolone 40 MG/ML VIAL IVP SCH (16:00)
[2021-01-06] MEDS ORDERED: Norepinephrine 4 MG/254 ML IV.SOLN IVC SCH (17:00)
[2021-01-06 18:00] VITALS: BP 97/45
== END 2021-01-06 19:40 | disposition short-term general hospital (02) | DRG 308 ==
LOC: EMEROOARM 12:00 → 2ANU 12:00 → SUATTDRO 14:47 → 2ANU 16:11 → 2NNU 01-06 12:44 → ICNU 01-06 13:28
PROVIDERS: ADMIT Internal Medicine; ATTEND Internal Medicine

== ENCOUNTER 2022-02-12 09:14 | Inpatient (IN) ==
[2022-02-12] MEDS ORDERED: 0.9 % Sodium Chloride 1,000 ML IVC ONE ×2 (09:29→11:14)
[2022-02-12 09:56] LABS: Basophils % 0.2 %; Eosinophils % 0.1 %; Hematocrit 37.1 % (35.3-44.9); Hemoglobin 11.9 g/dL (11.5-15.4); Immature Granulocytes % 0.4 % (0-4); Lymphocytes # 1.4 K/mcL (0.6-4.6); Lymphocytes % 7.5 %; Mean Corpuscular HGB Conc 32.1 g/dL (31.6-35.5); Mean Corpuscular Hemoglobin 28.2 pg (28.0-33.3); Mean Corpuscular Volume 87.9 fL (83.0-100.0); Monocytes # 0.3 K/mcL (0.0-1.3); Monocytes % 1.4 %; Neutrophils # 16.3 K/mcL (1.6-8.9); Platelet Count 563 K/mcL (140-400); Red Blood Count 4.22 M/mcL (3.82-4.97); Red Cell Distribution Width 14.7 % (11.5-14.5); Segmented Neutrophils % 90.4 %; White Blood Count 18.1 K/mcL (4.3-11.1)
[2022-02-12 10:01] LABS: INR 1.7; Prothrombin Time 19.3 Seconds (9.4-12.1)
[2022-02-12 10:15] LABS: BUN/Creatinine Ratio 9 (6-26); Blood Urea Nitrogen 11 mg/dL (8-23); Calcium 7.8 mg/dL (8.6-10.3); Carbon Dioxide 22 mEq/L (23-29); Chloride 102 mEq/L (98-107); Creatine Kinase 39 Units/L (30-223); Glucose 113 mg/dL (70-105); Magnesium 1.2 mg/dL (1.6-2.6); Osmolality,Calculated 284 (280-300); Potassium 3.1 mEq/L (3.5-5.1); Sodium 137 mEq/L (136-145); Troponin I < 0.03 ng/mL (< 0.04); eGFR For African Americans 53 (> 60); eGFR For Non-African Americans 44 (> 60)
[2022-02-12 10:29] LABS: Thyroid Stimulating Hormone 1.119 mcIU/mL (0.340-5.600)
[2022-02-12 10:54] LABS: Influenza A PCR Negative (Negative); Influenza B PCR Negative (Negative); Resp. Syncytial Virus PCR Negative (Negative)
[2022-02-12] MEDS ORDERED: Azithromycin 500 MG in 0.9 % Sodium Chloride 250 ML IVPB ONE (10:54)
[2022-02-12] MEDS ORDERED: cefTRIAXone 2,000 MG in 0.9 % Sodium Chloride 20 ML IVP ONE (10:54)
[2022-02-12] MEDS ORDERED: Magnesium Oxide 400 MG TABLET PO STA (10:56)
[2022-02-12] MEDS ORDERED: Potassium Chloride Elixir 20 MEQ/15 ML UDC PO ONE (10:56)
[2022-02-12 11:04] LABS: Bacteria,Urine Few per hpf (None-Few); Bilirubin,Urine Negative (Negative); Blood,Urine Negative (Negative); Clarity,Urine Turbid (Clear); Color,Urine Yellow (Yellow); Glucose,Urine (UA) Normal (Normal); Granular Casts,Urine Many per lpf (None Seen); Hyaline Casts,Urine Many per lpf (None Seen); Ketones,Urine Negative (Negative); Leukocyte Esterase,Urine Negative (Negative); Mucus,Urine Few per lpf (None-Few); Nitrite,Urine Negative (Negative); PH,Urine 6.5 pH Units (5.0-8.0); Protein,Urine 50 mg/dL (Neg-Trace); Specific Gravity,Urine 1.015 (1.010-1.025); Urobilinogen,Urine Normal (Normal)
[2022-02-12 11:09] LABS: SARS-CoV-2 by PCR (In House) Negative (Negative)
[2022-02-12] MEDS ORDERED: Isovue-370 500 ML BOTTLE IVP ONE (11:12)
[2022-02-12] MEDS ORDERED: Naloxone 0.4 MG/ML INJ IVP PRN (11:14)
[2022-02-12] MEDS ORDERED: Ondansetron 4 MG/2 ML VIAL IVP ONE (11:20)
[2022-02-12] MEDS ORDERED: Fluticasone Propionate Nasal 50 MCG/SPRAY BOTTLE NS PRN (14:06)
[2022-02-12] MEDS: Gabapentin 300 MG CAPSULE PO SCH ×2 (15:04→20:53)
[2022-02-12] MEDS: Simethicone 80 MG TAB.CHEW PO SCH ×2 (15:04→20:53)
[2022-02-12] MEDS: *HR* HYDROcodone/Acet 5/325 mg TABLET PO PRN (15:56)
[2022-02-12] MEDS ORDERED: MetroNIDAZOLE 500 MG/100 ML 500 MG/100 ML BAG IVPB SCH (16:00)
[2022-02-12] MEDS: Benzonatate 100 MG CAPSULE PO PRN (16:48)
[2022-02-12] MEDS ORDERED: carvediloL 6.25 MG TABLET PO SCH (17:00)
[2022-02-12] MEDS ORDERED: Cefepime HCl 2,000 MG in 0.9 % Sodium Chloride 10 ML IVP SCH (18:00)
[2022-02-12] MEDS ORDERED: Apixaban 5 MG TABLET PO SCH (21:00)
[2022-02-13] MEDS ORDERED: Vancomycin 1,250 MG/262.5 ML IV.SOLN IVPB ONE
[2022-02-13] MEDS ORDERED: Piperacillin/Tazobactam 3.375 GM in 0.9 % Sodium Chloride Mini Bag 100 ML IVPB SCH
[2022-02-13] MEDS ORDERED: Albumin 25% 25gram/100mL 25 GM/100 ML IV.SOLN IVPB ONE (00:01)
[2022-02-13] MEDS ORDERED: Ringers Solution, Lactated 1,000 ML IVC SCH ×2 (00:30→08:30)
[2022-02-13 06:00] LABS: VBG Ionized Calcium 0.97 mmol/L (1.15-1.35)
[2022-02-13 06:26] LABS: Alanine Aminotransferase 6 Units/L (7-52); Albumin 1.9 g/dL (3.5-5.7); Alkaline Phosphatase 78 Units/L (34-104); Aspartate Amino Transferase 10 Units/L (13-39); BUN/Creatinine Ratio 8 (6-26); Bilirubin,Total 0.3 mg/dL (0.3-1.0); Blood Urea Nitrogen 9 mg/dL (8-23); Calcium 6.9 mg/dL (8.6-10.3); Carbon Dioxide 21 mEq/L (23-29); Chloride 112 mEq/L (98-107); Globulin 1.9 g/dL (2.4-3.5); Glucose 88 mg/dL (70-105); Magnesium 1.1 mg/dL (1.6-2.6); Osmolality,Calculated 286 (280-300); Phosphorous 2.8 mg/dL (2.7-4.5); Potassium 4.1 mEq/L (3.5-5.1); Sodium 139 mEq/L (136-145); Total Protein 3.8 g/dL (6.4-8.9); eGFR For African Americans > 60 (> 60); eGFR For Non-African Americans 53 (> 60)
[2022-02-13 06:37] LABS: Hemoglobin 8.6 g/dL (11.5-15.4); Immature Granulocytes % 0.4 % (0-4); Mean Platelet Volume 9.6 fL (9.4-12.4); Red Cell Distribution Width 14.8 % (11.5-14.5)
[2022-02-13 06:39] LABS: Basophils # 0.1 K/mcL (0.0-0.2); Eosinophils # 0.2 K/mcL (0.0-0.6); Eosinophils % 1.9 %; Hematocrit 28.2 % (35.3-44.9); Immature Platelets 1.4 % (1.1-6.1); Lymphocytes # 0.9 K/mcL (0.6-4.6); Lymphocytes % 10.6 %; Mean Corpuscular HGB Conc 30.5 g/dL (31.6-35.5); Mean Corpuscular Volume 94.9 fL (83.0-100.0); Monocytes # 0.3 K/mcL (0.0-1.3); Monocytes % 3.5 %; Neutrophils # 6.6 K/mcL (1.6-8.9); Platelet Count 258 K/mcL (140-400); Red Blood Count 2.97 M/mcL (3.82-4.97); Segmented Neutrophils % 82.6 %
[2022-02-13] MEDS: Benzonatate 100 MG CAPSULE PO PRN (07:34)
[2022-02-13] MEDS: Simethicone 80 MG TAB.CHEW PO SCH ×4 (07:34→21:28)
[2022-02-13] MEDS: Gabapentin 300 MG CAPSULE PO SCH ×3 (07:34→21:28)
[2022-02-13] MEDS: Albumin 25% 25gram/100mL 25 GM/100 ML IV.SOLN IVPB SCH ×3 (07:35→23:48)
[2022-02-13] MEDS: Calcium Gluconate 1gm/50mL 1 GM/50 ML BAG IVPB SCH ×2 (07:35→08:18)
[2022-02-13] MEDS ORDERED: 0.9 % Sodium Chloride 500 ML IVC ONE (07:44)
[2022-02-13] MEDS ORDERED: 0.9 % Sodium Chloride 500 ML ONE (07:50)
[2022-02-13] MEDS: (Brexpiprazole [Rexulti] 1 MG Tablet) PO SCH (08:06)
[2022-02-13] MEDS: Aspirin Enteric Coated 81 MG Tablet PO SCH (08:06)
[2022-02-13] MEDS: DESVENLAFAXINE SUCCINATE PO SCH (08:06)
[2022-02-13] MEDS: Apixaban 5 MG TABLET PO SCH ×2 (08:06→21:29)
[2022-02-13] MEDS: Cefepime HCl 2,000 MG in 0.9 % Sodium Chloride 10 ML IVP SCH ×2 (08:22→16:55)
[2022-02-13 09:17] LABS: Hematocrit 26.2 % (35.3-44.9); Hemoglobin 8.4 g/dL (11.5-15.4)
[2022-02-13 09:43] LABS: ABG Base Excess -5 mEq/L (-2 to 3); ABG HCO3 19 mEq/L (21-27); ABG Oxygen Saturation 97 % (95-98); ABG PCO2 27 mmHg (35-45); ABG PH 7.45 pH Units (7.32-7.45); ABG PO2 81 mmHg (85-104); ABG TCO2 20 mEq/L (20-26); Blood Gas Modality PC
[2022-02-13] MEDS: Ringers Solution, Lactated 1,000 ML IVC SCH ×2 (11:26→16:53)
[2022-02-13 13:46] LABS: Adenovirus F 40/41 PCR Not detected (Not detect); Astrovirus PCR Not detected (Not detect); Campylobacter by PCR Not detected (Not detect); Cryptosporidium by PCR Not detected (Not detect); Cyclospora cayetanensis PCR Not detected (Not detect); E. coli O157 by PCR Not detected (Not detect); Entamoeba histolytica PCR Not detected (Not detect); Enteroaggregative E.coli(EAEC) Not detected (Not detect); Enteropathogenic E.coli(EPEC) Not detected (Not detect); Enterotoxigenic E.coli (ETEC) Not detected (Not detect); Giardia lamblia PCR Not detected (Not detect); Norovirus GI/GII PCR Not detected (Not detect); Plesiomonas shigelloides PCR Not detected (Not detect); Rotavirus A PCR Not detected (Not detect); Salmonella PCR Not detected (Not detect); Sapovirus PCR Not detected (Not detect); Shig/EnteroinvasiveE coli EIEC Not detected (Not detect); Shigalike tox-prod E coli STEC Not detected (Not detect); Vibrio PCR Not detected (Not detect); Vibrio cholerae PCR Not detected (Not detect); Yersinia enterocolitica PCR Not detected (Not detect)
[2022-02-13 14:17] LABS: C.difficile Toxin A/B Gene PCR DETECTED (Not detect)
[2022-02-13] MEDS: Melatonin 3 MG TABLET PO PRN (21:29)
[2022-02-13] MEDS: Nystatin POWDER 30 GM BOTTLE TP SCH (21:29)
[2022-02-14] MEDS: Cefepime HCl 2,000 MG in 0.9 % Sodium Chloride 10 ML IVP SCH (05:37)
[2022-02-14 07:28] LABS: Basophils # 0.1 K/mcL (0.0-0.2); Basophils % 0.8 %; Eosinophils # 0.2 K/mcL (0.0-0.6); Eosinophils % 2.8 %; Hematocrit 26.4 % (35.3-44.9); Hemoglobin 8.3 g/dL (11.5-15.4); Immature Granulocytes % 0.2 % (0-4); Lymphocytes # 1.1 K/mcL (0.6-4.6); Lymphocytes % 16.2 %; Mean Corpuscular HGB Conc 31.4 g/dL (31.6-35.5); Mean Corpuscular Volume 92.3 fL (83.0-100.0); Mean Platelet Volume 9.3 fL (9.4-12.4); Monocytes # 0.3 K/mcL (0.0-1.3); Monocytes % 4.9 %; Neutrophils # 4.9 K/mcL (1.6-8.9); Platelet Count 357 K/mcL (140-400); Red Blood Count 2.86 M/mcL (3.82-4.97); Red Cell Distribution Width 14.8 % (11.5-14.5); Segmented Neutrophils % 75.1 %; White Blood Count 6.5 K/mcL (4.3-11.1)
[2022-02-14] MEDS: Aspirin Enteric Coated 81 MG Tablet PO SCH (07:33)
[2022-02-14] MEDS: Albumin 25% 25gram/100mL 25 GM/100 ML IV.SOLN IVPB SCH ×3 (07:33→09:51)
[2022-02-14] MEDS: Nystatin POWDER 30 GM BOTTLE TP SCH ×2 (07:34→22:39)
[2022-02-14] MEDS: Gabapentin 300 MG CAPSULE PO SCH ×3 (07:34→22:38)
[2022-02-14] MEDS: Apixaban 5 MG TABLET PO SCH ×2 (07:34→22:38)
[2022-02-14] MEDS: Simethicone 80 MG TAB.CHEW PO SCH ×4 (07:34→22:37)
[2022-02-14] MEDS: (Brexpiprazole [Rexulti] 1 MG Tablet) PO SCH (07:35)
[2022-02-14] MEDS: DESVENLAFAXINE SUCCINATE PO SCH (07:35)
[2022-02-14] MEDS ORDERED: Ringers Solution, Lactated 1,000 ML IVC SCH (07:45)
[2022-02-14 07:55] LABS: BUN/Creatinine Ratio 7 (6-26); Blood Urea Nitrogen 6 mg/dL (8-23); Calcium 7.7 mg/dL (8.6-10.3); Carbon Dioxide 20 mEq/L (23-29); Chloride 114 mEq/L (98-107); Glucose 84 mg/dL (70-105); Magnesium 1.4 mg/dL (1.6-2.6); Osmolality,Calculated 281 (280-300); Phosphorous 2.3 mg/dL (2.7-4.5); Potassium 4.1 mEq/L (3.5-5.1); Sodium 137 mEq/L (136-145); eGFR For African Americans > 60 (> 60); eGFR For Non-African Americans > 60 (> 60)
[2022-02-14] MEDS: Lactobacillus 1 EACH CAP.SPRINK PO SCH (09:46)
[2022-02-14] MEDS ORDERED: Cefepime HCl 1,000 MG in 0.9 % Sodium Chloride 10 ML IVP SCH (16:00)
[2022-02-14] MEDS: Cefepime HCl 2,000 MG in 0.9 % Sodium Chloride Mini Bag 100 ML IVPB SCH (16:08)
[2022-02-15] MEDS: Cefepime HCl 2,000 MG in 0.9 % Sodium Chloride Mini Bag 100 ML IVPB SCH ×4 (00:47→23:26)
[2022-02-15] MEDS: Vancomycin 1,250 MG/262.5 ML IV.SOLN IVPB SCH (00:48)
[2022-02-15] MEDS: Lactobacillus 1 EACH CAP.SPRINK PO SCH (07:58)
[2022-02-15] MEDS: Simethicone 80 MG TAB.CHEW PO SCH ×4 (07:58→20:01)
[2022-02-15] MEDS: Gabapentin 300 MG CAPSULE PO SCH ×3 (07:59→20:01)
[2022-02-15] MEDS: Apixaban 5 MG TABLET PO SCH ×2 (07:59→20:01)
[2022-02-15] MEDS: Aspirin Enteric Coated 81 MG Tablet PO SCH (07:59)
[2022-02-15] MEDS: (Brexpiprazole [Rexulti] 1 MG Tablet) PO SCH (08:00)
[2022-02-15] MEDS: Nystatin POWDER 30 GM BOTTLE TP SCH ×2 (08:00→20:05)
[2022-02-15] MEDS: DESVENLAFAXINE SUCCINATE PO SCH (09:55)
[2022-02-15] MEDS: metroNIDAZOLE 500 MG TABLET PO SCH ×3 (10:01→20:01)
[2022-02-15] MEDS: *HR* HYDROcodone/Acet 5/325 mg TABLET PO PRN (10:47)
[2022-02-15] MEDS ORDERED: Ringers Solution, Lactated 1,000 ML IVC SCH (11:00)
[2022-02-15 11:44] LABS: Basophils % 0.6 %; Eosinophils # 0.2 K/mcL (0.0-0.6); Eosinophils % 2.7 %; Hematocrit 26.4 % (35.3-44.9); Hemoglobin 8.3 g/dL (11.5-15.4); Immature Granulocytes % 0.5 % (0-4); Lymphocytes # 1.1 K/mcL (0.6-4.6); Lymphocytes % 16.7 %; Mean Corpuscular HGB Conc 31.4 g/dL (31.6-35.5); Mean Corpuscular Hemoglobin 28.8 pg (28.0-33.3); Mean Corpuscular Volume 91.7 fL (83.0-100.0); Mean Platelet Volume 9.3 fL (9.4-12.4); Monocytes # 0.4 K/mcL (0.0-1.3); Monocytes % 5.9 %; Neutrophils # 4.9 K/mcL (1.6-8.9); Platelet Count 400 K/mcL (140-400); Red Blood Count 2.88 M/mcL (3.82-4.97); Red Cell Distribution Width 14.6 % (11.5-14.5); Segmented Neutrophils % 73.6 %; White Blood Count 6.7 K/mcL (4.3-11.1)
[2022-02-15] MEDS: Magnesium Oxide 400 MG TABLET PO SCH ×2 (11:49→20:01)
[2022-02-15 13:39] LABS: BUN/Creatinine Ratio 12 (6-26); Blood Urea Nitrogen 9 mg/dL (8-23); Calcium 7.9 mg/dL (8.6-10.3); Carbon Dioxide 21 mEq/L (23-29); Chloride 110 mEq/L (98-107); Glucose 100 mg/dL (70-105); Magnesium 1.5 mg/dL (1.6-2.6); Osmolality,Calculated 281 (280-300); Phosphorous 1.8 mg/dL (2.7-4.5); Potassium 3.7 mEq/L (3.5-5.1); Sodium 136 mEq/L (136-145); eGFR For African Americans > 60 (> 60); eGFR For Non-African Americans > 60 (> 60)
[2022-02-15] MEDS ORDERED: 0.9 % Sodium Chloride 250 ML IV ONE (17:24)
[2022-02-15] MEDS: Acetaminophen 325 MG TABLET PO PRN (18:41)
[2022-02-16] MEDS: Vancomycin 1,250 MG/262.5 ML IV.SOLN IVPB SCH (00:59)
[2022-02-16] MEDS: Cefepime HCl 2,000 MG in 0.9 % Sodium Chloride Mini Bag 100 ML IVPB SCH ×2 (08:51→18:43)
[2022-02-16] MEDS: Simethicone 80 MG TAB.CHEW PO SCH ×4 (08:54→19:26)
[2022-02-16 09:25] LABS: Hematocrit 29.2 % (35.3-44.9); Hemoglobin 9.5 g/dL (11.5-15.4)
[2022-02-16 09:44] LABS: BUN/Creatinine Ratio 10 (6-26); Blood Urea Nitrogen 7 mg/dL (8-23); Calcium 8.4 mg/dL (8.6-10.3); Carbon Dioxide 24 mEq/L (23-29); Chloride 112 mEq/L (98-107); Glucose 106 mg/dL (70-105); Magnesium 1.5 mg/dL (1.6-2.6); Osmolality,Calculated 290 (280-300); Phosphorous 1.8 mg/dL (2.7-4.5); Potassium 3.3 mEq/L (3.5-5.1); Sodium 141 mEq/L (136-145); eGFR For African Americans > 60 (> 60); eGFR For Non-African Americans > 60 (> 60)
[2022-02-16 10:30] LABS: Immunoglobulin A 199 mg/dL (68-408); Immunoglobulin G 831 mg/dL (768-1632); Immunoglobulin M 15 mg/dL (35-263)
[2022-02-16] MEDS: Apixaban 5 MG TABLET PO SCH ×2 (11:07→19:26)
[2022-02-16] MEDS: Folic Acid 1 MG TABLET PO SCH (11:08)
[2022-02-16] MEDS: Aspirin Enteric Coated 81 MG Tablet PO SCH (11:08)
[2022-02-16] MEDS: Lactobacillus 1 EACH CAP.SPRINK PO SCH (11:09)
[2022-02-16] MEDS: Magnesium Oxide 400 MG TABLET PO SCH ×2 (11:09→19:26)
[2022-02-16] MEDS: metroNIDAZOLE 500 MG TABLET PO SCH ×3 (11:10→19:26)
[2022-02-16] MEDS: Gabapentin 300 MG CAPSULE PO SCH ×3 (11:10→19:26)
[2022-02-16] MEDS: Cholecalciferol (D-3) 1,000 UNIT (25MCG) TABLET PO SCH (11:11)
[2022-02-16] MEDS: Nystatin POWDER 30 GM BOTTLE TP SCH ×2 (11:14→19:27)
[2022-02-16] MEDS ORDERED: Potassium Phosphate 44 MEQ in 0.9 % Sodium Chloride 250 ML IVPB ONE (12:03)
[2022-02-16] MEDS: Ondansetron ODT 4 MG TAB.RAPDIS SL PRN (12:28)
[2022-02-16] MEDS: *HR* HYDROcodone/Acet 5/325 mg TABLET PO PRN (13:52)
[2022-02-16] MEDS: (Brexpiprazole [Rexulti] 1 MG Tablet) PO SCH (13:59)
[2022-02-16] MEDS: DESVENLAFAXINE SUCCINATE PO SCH (13:59)
[2022-02-17] MEDS: Cefepime HCl 2,000 MG in 0.9 % Sodium Chloride Mini Bag 100 ML IVPB SCH ×4 (00:07→23:23)
[2022-02-17] MEDS: Aspirin Enteric Coated 81 MG Tablet PO SCH (08:05)
[2022-02-17] MEDS: Gabapentin 300 MG CAPSULE PO SCH ×3 (08:05→19:57)
[2022-02-17] MEDS: Lactobacillus 1 EACH CAP.SPRINK PO SCH (08:05)
[2022-02-17] MEDS: metroNIDAZOLE 500 MG TABLET PO SCH ×3 (08:05→23:23)
[2022-02-17] MEDS: Simethicone 80 MG TAB.CHEW PO SCH ×4 (08:05→19:57)
[2022-02-17] MEDS: Apixaban 5 MG TABLET PO SCH ×2 (08:06→19:57)
[2022-02-17] MEDS: carvediloL 6.25 MG TABLET PO SCH ×2 (08:06→16:12)
[2022-02-17] MEDS: Cholecalciferol (D-3) 1,000 UNIT (25MCG) TABLET PO SCH (08:06)
[2022-02-17] MEDS: Magnesium Oxide 400 MG TABLET PO SCH ×2 (08:06→19:57)
[2022-02-17] MEDS: Folic Acid 1 MG TABLET PO SCH (08:06)
[2022-02-17] MEDS: (Brexpiprazole [Rexulti] 1 MG Tablet) PO SCH (08:07)
[2022-02-17] MEDS: DESVENLAFAXINE SUCCINATE PO SCH (08:07)
[2022-02-17 08:44] LABS: Magnesium 1.7 mg/dL (1.6-2.6); Phosphorous 3.3 mg/dL (2.7-4.5)
[2022-02-17 08:45] LABS: BUN/Creatinine Ratio 8 (6-26); Blood Urea Nitrogen 6 mg/dL (8-23); Carbon Dioxide 27 mEq/L (23-29); Chloride 110 mEq/L (98-107); Glucose 94 mg/dL (70-105); Osmolality,Calculated 287 (280-300); Potassium 3.8 mEq/L (3.5-5.1); Sodium 140 mEq/L (136-145); eGFR For African Americans > 60 (> 60); eGFR For Non-African Americans > 60 (> 60)
[2022-02-17] MEDS: Nystatin POWDER 30 GM BOTTLE TP SCH (09:36)
[2022-02-17] MEDS: *HR* HYDROcodone/Acet 5/325 mg TABLET PO PRN (17:22)
[2022-02-18] MEDS: Nystatin POWDER 30 GM BOTTLE TP SCH ×3 (00:08→22:35)
[2022-02-18] MEDS: *HR* HYDROcodone/Acet 5/325 mg TABLET PO PRN ×2 (02:00→15:30)
[2022-02-18 05:42] LABS: Hematocrit 26.7 % (35.3-44.9); Hemoglobin 8.3 g/dL (11.5-15.4)
[2022-02-18 05:59] LABS: BUN/Creatinine Ratio 9 (6-26); Blood Urea Nitrogen 6 mg/dL (8-23); Calcium 8.1 mg/dL (8.6-10.3); Carbon Dioxide 23 mEq/L (23-29); Chloride 110 mEq/L (98-107); Glucose 92 mg/dL (70-105); Magnesium 1.5 mg/dL (1.6-2.6); Osmolality,Calculated 283 (280-300); Phosphorous 2.5 mg/dL (2.7-4.5); Potassium 3.5 mEq/L (3.5-5.1); Sodium 138 mEq/L (136-145); eGFR For African Americans > 60 (> 60); eGFR For Non-African Americans > 60 (> 60)
[2022-02-18] MEDS ORDERED: Magnesium Sulfate 1 GM/102 ML PIGGYBACK IVPB ONE (07:25)
[2022-02-18] MEDS: Vancomycin 1,250 MG/262.5 ML IV.SOLN IVPB SCH (07:31)
[2022-02-18] MEDS: Cefepime HCl 2,000 MG in 0.9 % Sodium Chloride Mini Bag 100 ML IVPB SCH ×2 (08:30→15:25)
[2022-02-18] MEDS: Aspirin Enteric Coated 81 MG Tablet PO SCH (08:30)
[2022-02-18] MEDS: Cholecalciferol (D-3) 1,000 UNIT (25MCG) TABLET PO SCH (08:30)
[2022-02-18] MEDS: carvediloL 6.25 MG TABLET PO SCH ×2 (08:30→15:25)
[2022-02-18] MEDS: Magnesium Oxide 400 MG TABLET PO SCH ×2 (08:30→22:34)
[2022-02-18] MEDS: Lactobacillus 1 EACH CAP.SPRINK PO SCH (08:31)
[2022-02-18] MEDS: Folic Acid 1 MG TABLET PO SCH (08:31)
[2022-02-18] MEDS: Simethicone 80 MG TAB.CHEW PO SCH ×4 (08:31→22:34)
[2022-02-18] MEDS: metroNIDAZOLE 500 MG TABLET PO SCH ×5 (08:31→22:34)
[2022-02-18] MEDS: Apixaban 5 MG TABLET PO SCH ×2 (08:31→22:34)
[2022-02-18] MEDS: Gabapentin 300 MG CAPSULE PO SCH ×3 (08:32→22:34)
[2022-02-18] MEDS: DESVENLAFAXINE SUCCINATE PO SCH (08:34)
[2022-02-18] MEDS: (Brexpiprazole [Rexulti] 1 MG Tablet) PO SCH (08:34)
[2022-02-18 14:22] LABS: Immature Reticulocyte % 20.8 % (11.0-38.0); Retculocyte # 0.05 M/mcL (0.05-0.10); Reticulocyte % 1.5 % (1.6-2.8)
[2022-02-18 14:45] LABS: % Iron Saturation 23 % (15-50); Iron 25 mcg/dL (50-170); Lactate Dehydrogenase 190 Units/L (140-271); Transferrin 79 mg/dL (203-362)
[2022-02-18 15:03] LABS: Ferritin 129 ng/mL (10-120)
[2022-02-18] MEDS: Ondansetron ODT 4 MG TAB.RAPDIS SL PRN (19:34)
[2022-02-19] MEDS: Cefepime HCl 2,000 MG in 0.9 % Sodium Chloride Mini Bag 100 ML IVPB SCH ×2 (00:01→10:56)
[2022-02-19] MEDS: *HR* HYDROcodone/Acet 5/325 mg TABLET PO PRN ×3 (00:43→18:22)
[2022-02-19 03:04] LABS: BUN/Creatinine Ratio 9 (6-26); Blood Urea Nitrogen 6 mg/dL (8-23); Calcium 8.3 mg/dL (8.6-10.3); Carbon Dioxide 23 mEq/L (23-29); Chloride 110 mEq/L (98-107); Glucose 89 mg/dL (70-105); Magnesium 1.7 mg/dL (1.6-2.6); Osmolality,Calculated 283 (280-300); Phosphorous 2.5 mg/dL (2.7-4.5); Potassium 3.6 mEq/L (3.5-5.1); Sodium 138 mEq/L (136-145); eGFR For African Americans > 60 (> 60); eGFR For Non-African Americans > 60 (> 60)
[2022-02-19] MEDS: Ondansetron ODT 4 MG TAB.RAPDIS SL PRN (08:28)
[2022-02-19 10:03] LABS: White Blood Count 6.7 K/mcL (4.3-11.1)
[2022-02-19 10:04] LABS: Basophils # 0.1 K/mcL (0.0-0.2); Basophils % 1.5 %; Eosinophils # 0.2 K/mcL (0.0-0.6); Eosinophils % 2.4 %; Hemoglobin 8.5 g/dL (11.5-15.4); Immature Granulocytes % 0.3 % (0-4); Lymphocytes # 1.5 K/mcL (0.6-4.6); Lymphocytes % 22.3 %; Mean Corpuscular HGB Conc 31.5 g/dL (31.6-35.5); Mean Corpuscular Hemoglobin 28.1 pg (28.0-33.3); Mean Corpuscular Volume 89.1 fL (83.0-100.0); Mean Platelet Volume 9.3 fL (9.4-12.4); Monocytes # 0.6 K/mcL (0.0-1.3); Monocytes % 8.6 %; Neutrophils # 4.4 K/mcL (1.6-8.9); Platelet Count 392 K/mcL (140-400); Red Blood Count 3.03 M/mcL (3.82-4.97); Red Cell Distribution Width 15.3 % (11.5-14.5); Segmented Neutrophils % 64.9 %
[2022-02-19] MEDS: carvediloL 6.25 MG TABLET PO SCH ×2 (10:55→16:53)
[2022-02-19] MEDS: Simethicone 80 MG TAB.CHEW PO SCH ×3 (10:55→20:28)
[2022-02-19] MEDS: Aspirin Enteric Coated 81 MG Tablet PO SCH (10:56)
[2022-02-19] MEDS: metroNIDAZOLE 500 MG TABLET PO SCH ×3 (10:56→22:26)
[2022-02-19] MEDS: Lactobacillus 1 EACH CAP.SPRINK PO SCH (10:56)
[2022-02-19] MEDS: Folic Acid 1 MG TABLET PO SCH (10:56)
[2022-02-19] MEDS: Magnesium Oxide 400 MG TABLET PO SCH ×2 (10:57→20:29)
[2022-02-19] MEDS: (Brexpiprazole [Rexulti] 1 MG Tablet) PO SCH (10:58)
[2022-02-19] MEDS: Gabapentin 300 MG CAPSULE PO SCH ×3 (10:58→20:28)
[2022-02-19] MEDS: DESVENLAFAXINE SUCCINATE PO SCH (10:58)
[2022-02-19] MEDS: Cholecalciferol (D-3) 1,000 UNIT (25MCG) TABLET PO SCH (10:59)
[2022-02-19] MEDS: Apixaban 5 MG TABLET PO SCH ×2 (13:47→20:28)
[2022-02-19] MEDS ORDERED: Iron Sucrose Complex 400 MG in 0.9 % Sodium Chloride 250 ML IVPB ONE (14:01)
[2022-02-19] MEDS: Nystatin POWDER 30 GM BOTTLE TP SCH ×2 (14:20→20:29)
[2022-02-19] MEDS: Ondansetron 4 MG/2 ML VIAL IVP PRN (16:19)
[2022-02-19] MEDS ORDERED: Cefepime HCl 2,000 MG in 0.9 % Sodium Chloride 10 ML IVPB SCH (16:30)
[2022-02-19] MEDS: Cefepime HCl 2,000 MG in 0.9 % Sodium Chloride 10 ML IVPB SCH (18:57)
[2022-02-20] MEDS: Cefepime HCl 2,000 MG in 0.9 % Sodium Chloride 10 ML IVPB SCH ×3 (00:49→18:01)
[2022-02-20] MEDS ORDERED: *HR* Metoprolol 5 MG/5 ML VIAL IVP ONE (01:11)
[2022-02-20] MEDS: Lactobacillus 1 EACH CAP.SPRINK PO SCH (08:06)
[2022-02-20] MEDS: Gabapentin 300 MG CAPSULE PO SCH ×3 (08:06→19:22)
[2022-02-20] MEDS: Cholecalciferol (D-3) 1,000 UNIT (25MCG) TABLET PO SCH (08:06)
[2022-02-20] MEDS: carvediloL 6.25 MG TABLET PO SCH ×2 (08:06→18:02)
[2022-02-20] MEDS: Magnesium Oxide 400 MG TABLET PO SCH ×2 (08:07→19:22)
[2022-02-20] MEDS: Aspirin Enteric Coated 81 MG Tablet PO SCH (08:07)
[2022-02-20] MEDS: Folic Acid 1 MG TABLET PO SCH (08:07)
[2022-02-20] MEDS: metroNIDAZOLE 500 MG TABLET PO SCH ×3 (08:07→19:22)
[2022-02-20] MEDS: Apixaban 5 MG TABLET PO SCH ×2 (08:07→19:22)
[2022-02-20] MEDS: Simethicone 80 MG TAB.CHEW PO SCH ×4 (08:08→19:22)
[2022-02-20] MEDS: DESVENLAFAXINE SUCCINATE PO SCH (08:09)
[2022-02-20] MEDS: (Brexpiprazole [Rexulti] 1 MG Tablet) PO SCH (08:09)
[2022-02-20] MEDS: Nystatin POWDER 30 GM BOTTLE TP SCH ×2 (11:37→19:23)
[2022-02-20] MEDS: Ondansetron 4 MG/2 ML VIAL IVP PRN (23:28)
[2022-02-20] MEDS ORDERED: 0.9 % Sodium Chloride 500 ML IVC ONE (23:30)
[2022-02-21] MEDS: Cefepime HCl 2,000 MG in 0.9 % Sodium Chloride 10 ML IVPB SCH ×3 (01:31→16:01)
[2022-02-21] MEDS ORDERED: 0.9 % Sodium Chloride 250 ML IVC ONE (03:59)
[2022-02-21 04:57] LABS: BUN/Creatinine Ratio 10 (6-26); Blood Urea Nitrogen 7 mg/dL (8-23); Calcium 8.2 mg/dL (8.6-10.3); Carbon Dioxide 24 mEq/L (23-29); Chloride 110 mEq/L (98-107); Glucose 98 mg/dL (70-105); Magnesium 1.6 mg/dL (1.6-2.6); Osmolality,Calculated 288 (280-300); Phosphorous 2.8 mg/dL (2.7-4.5); Potassium 3.4 mEq/L (3.5-5.1); Sodium 140 mEq/L (136-145); eGFR For African Americans > 60 (> 60); eGFR For Non-African Americans > 60 (> 60)
[2022-02-21] MEDS: Simethicone 80 MG TAB.CHEW PO SCH ×4 (05:48→22:16)
[2022-02-21] MEDS: Gabapentin 300 MG CAPSULE PO SCH ×3 (09:45→22:18)
[2022-02-21] MEDS: carvediloL 6.25 MG TABLET PO SCH ×2 (09:46→16:00)
[2022-02-21] MEDS: Cholecalciferol (D-3) 1,000 UNIT (25MCG) TABLET PO SCH (09:46)
[2022-02-21] MEDS: Apixaban 5 MG TABLET PO SCH ×2 (09:46→22:17)
[2022-02-21] MEDS: metroNIDAZOLE 500 MG TABLET PO SCH ×3 (09:46→22:16)
[2022-02-21] MEDS: Lactobacillus 1 EACH CAP.SPRINK PO SCH (09:46)
[2022-02-21] MEDS: Magnesium Oxide 400 MG TABLET PO SCH ×2 (09:46→22:17)
[2022-02-21] MEDS: Aspirin Enteric Coated 81 MG Tablet PO SCH (09:46)
[2022-02-21] MEDS: Folic Acid 1 MG TABLET PO SCH (09:46)
[2022-02-21] MEDS: Nystatin POWDER 30 GM BOTTLE TP SCH (09:47)
[2022-02-21] MEDS: *HR* HYDROcodone/Acet 5/325 mg TABLET PO PRN ×2 (09:47→22:18)
[2022-02-21] MEDS: (Brexpiprazole [Rexulti] 1 MG Tablet) PO SCH (09:47)
[2022-02-21] MEDS: DESVENLAFAXINE SUCCINATE PO SCH (09:47)
[2022-02-21 10:28] LABS: Immunoglobulin A 203 mg/dL (68-408); Immunoglobulin G 868 mg/dL (768-1632); Immunoglobulin M 25 mg/dL (35-263)
[2022-02-22 02:59] LABS: Hematocrit 25.7 % (35.3-44.9)
[2022-02-22 03:25] LABS: BUN/Creatinine Ratio 13 (6-26); Blood Urea Nitrogen 9 mg/dL (8-23); Calcium 8.2 mg/dL (8.6-10.3); Carbon Dioxide 23 mEq/L (23-29); Chloride 109 mEq/L (98-107); Glucose 95 mg/dL (70-105); Magnesium 1.5 mg/dL (1.6-2.6); Osmolality,Calculated 282 (280-300); Phosphorous 2.7 mg/dL (2.7-4.5); Sodium 137 mEq/L (136-145); eGFR For African Americans > 60 (> 60); eGFR For Non-African Americans > 60 (> 60)
[2022-02-22] MEDS: Nystatin POWDER 30 GM BOTTLE TP SCH ×3 (05:46→21:06)
[2022-02-22] MEDS: Cefepime HCl 2,000 MG in 0.9 % Sodium Chloride 10 ML IVPB SCH ×3 (05:53→16:52)
[2022-02-22] MEDS: metroNIDAZOLE 500 MG TABLET PO SCH ×3 (09:10→20:46)
[2022-02-22] MEDS: Lactobacillus 1 EACH CAP.SPRINK PO SCH (09:10)
[2022-02-22] MEDS: Gabapentin 300 MG CAPSULE PO SCH ×3 (09:10→20:46)
[2022-02-22] MEDS: Aspirin Enteric Coated 81 MG Tablet PO SCH (09:11)
[2022-02-22] MEDS: Folic Acid 1 MG TABLET PO SCH (09:11)
[2022-02-22] MEDS: carvediloL 6.25 MG TABLET PO SCH ×2 (09:11→16:50)
[2022-02-22] MEDS: Cholecalciferol (D-3) 1,000 UNIT (25MCG) TABLET PO SCH (09:11)
[2022-02-22] MEDS: Apixaban 5 MG TABLET PO SCH ×2 (09:11→20:45)
[2022-02-22] MEDS: Magnesium Oxide 400 MG TABLET PO SCH ×2 (09:12→20:45)
[2022-02-22] MEDS: Simethicone 80 MG TAB.CHEW PO SCH ×4 (09:12→20:46)
[2022-02-22] MEDS: Calcium Gluconate 1gm/50mL 1 GM/50 ML BAG IVPB SCH ×2 (09:13→12:56)
[2022-02-22] MEDS: DESVENLAFAXINE SUCCINATE PO SCH (09:14)
[2022-02-22] MEDS: (Brexpiprazole [Rexulti] 1 MG Tablet) PO SCH (09:14)
[2022-02-22] MEDS: Ondansetron ODT 4 MG TAB.RAPDIS SL PRN (12:30)
[2022-02-22] MEDS: Hydrocortisone Rectal 2.5% CRM 28 GM TUBE RC PRN (14:09)
[2022-02-22] MEDS: Chlorhexidine Rinse 15 ML MOUTHWASH MM SCH (20:46)
[2022-02-23] MEDS: Cefepime HCl 2,000 MG in 0.9 % Sodium Chloride 10 ML IVPB SCH ×3 (01:19→16:08)
[2022-02-23 03:34] LABS: Basophils # 0.1 K/mcL (0.0-0.2); Basophils % 1.2 %; Eosinophils # 0.2 K/mcL (0.0-0.6); Hematocrit 27.3 % (35.3-44.9); Hemoglobin 8.6 g/dL (11.5-15.4); Immature Granulocytes % 0.3 % (0-4); Lymphocytes # 0.8 K/mcL (0.6-4.6); Lymphocytes % 13.6 %; Mean Corpuscular HGB Conc 31.5 g/dL (31.6-35.5); Mean Corpuscular Volume 91.9 fL (83.0-100.0); Monocytes # 0.5 K/mcL (0.0-1.3); Neutrophils # 4.3 K/mcL (1.6-8.9); Platelet Count 306 K/mcL (140-400); Red Blood Count 2.97 M/mcL (3.82-4.97); Red Cell Distribution Width 15.9 % (11.5-14.5); Segmented Neutrophils % 71.9 %
[2022-02-23 03:41] LABS: INR 1.9; Prothrombin Time 20.8 Seconds (9.4-12.1)
[2022-02-23 03:54] LABS: Alanine Aminotransferase 5 Units/L (7-52); Albumin 2.4 g/dL (3.5-5.7); Albumin/Globulin Ratio 1.4 (1.1-2.2); Alkaline Phosphatase 65 Units/L (34-104); Aspartate Amino Transferase 10 Units/L (13-39); BUN/Creatinine Ratio 11 (6-26); Bilirubin,Total 0.4 mg/dL (0.3-1.0); Blood Urea Nitrogen 8 mg/dL (8-23); Carbon Dioxide 28 mEq/L (23-29); Chloride 108 mEq/L (98-107); Globulin 1.7 g/dL (2.4-3.5); Glucose 97 mg/dL (70-105); Magnesium 2.1 mg/dL (1.6-2.6); Osmolality,Calculated 284 (280-300); Phosphorous 2.6 mg/dL (2.7-4.5); Potassium 4.4 mEq/L (3.5-5.1); Sodium 138 mEq/L (136-145); Total Protein 4.1 g/dL (6.4-8.9); eGFR For African Americans > 60 (> 60); eGFR For Non-African Americans > 60 (> 60)
[2022-02-23] MEDS: Simethicone 80 MG TAB.CHEW PO SCH ×4 (08:09→20:45)
[2022-02-23] MEDS: carvediloL 6.25 MG TABLET PO SCH ×2 (08:10→16:08)
[2022-02-23] MEDS: Chlorhexidine Rinse 15 ML MOUTHWASH MM SCH ×2 (09:47→20:45)
[2022-02-23] MEDS: Lactobacillus 1 EACH CAP.SPRINK PO SCH (09:48)
[2022-02-23] MEDS: Magnesium Oxide 400 MG TABLET PO SCH ×2 (09:48→20:45)
[2022-02-23] MEDS: Multivit/Ca/Min/Fe/FA 1 TAB TABLET PO SCH (09:49)
[2022-02-23] MEDS: Gabapentin 300 MG CAPSULE PO SCH ×3 (09:49→20:45)
[2022-02-23] MEDS: Cholecalciferol (D-3) 1,000 UNIT (25MCG) TABLET PO SCH (09:49)
[2022-02-23] MEDS: Apixaban 5 MG TABLET PO SCH ×2 (09:50→20:45)
[2022-02-23] MEDS: Folic Acid 1 MG TABLET PO SCH (09:50)
[2022-02-23] MEDS: Aspirin Enteric Coated 81 MG Tablet PO SCH (09:51)
[2022-02-23] MEDS: *HR* HYDROcodone/Acet 5/325 mg TABLET PO PRN ×2 (09:51→16:08)
[2022-02-23] MEDS: metroNIDAZOLE 500 MG TABLET PO SCH ×3 (09:56→20:45)
[2022-02-23] MEDS: (Brexpiprazole [Rexulti] 1 MG Tablet) PO SCH (09:57)
[2022-02-23] MEDS: DESVENLAFAXINE SUCCINATE PO SCH (09:57)
[2022-02-23] MEDS ORDERED: *HR* LORazepam 0.5 MG TABLET PO ONE (10:02)
[2022-02-23] MEDS: Hydrocortisone Rectal 2.5% CRM 28 GM TUBE RC PRN (12:23)
[2022-02-23] MEDS: Nystatin POWDER 30 GM BOTTLE TP SCH ×2 (12:28→20:45)
[2022-02-24] MEDS: Cefepime HCl 2,000 MG in 0.9 % Sodium Chloride 10 ML IVPB SCH ×3 (01:25→16:05)
[2022-02-24] MEDS: *HR* LORazepam 0.5 MG TABLET PO PRN ×2 (01:35→19:27)
[2022-02-24] MEDS: *HR* HYDROcodone/Acet 5/325 mg TABLET PO PRN ×3 (01:35→19:27)
[2022-02-24 05:48] LABS: Basophils # 0.1 K/mcL (0.0-0.2); Basophils % 0.9 %; Eosinophils # 0.2 K/mcL (0.0-0.6); Eosinophils % 3.2 %; Hematocrit 26.4 % (35.3-44.9); Hemoglobin 8.3 g/dL (11.5-15.4); Immature Granulocytes % 0.2 % (0-4); Lymphocytes # 0.8 K/mcL (0.6-4.6); Lymphocytes % 15.5 %; Mean Corpuscular HGB Conc 31.4 g/dL (31.6-35.5); Mean Corpuscular Hemoglobin 28.4 pg (28.0-33.3); Mean Corpuscular Volume 90.4 fL (83.0-100.0); Mean Platelet Volume 9.5 fL (9.4-12.4); Monocytes # 0.5 K/mcL (0.0-1.3); Monocytes % 8.9 %; Neutrophils # 3.8 K/mcL (1.6-8.9); Platelet Count 304 K/mcL (140-400); Red Blood Count 2.92 M/mcL (3.82-4.97); Red Cell Distribution Width 16.1 % (11.5-14.5); Segmented Neutrophils % 71.3 %; White Blood Count 5.3 K/mcL (4.3-11.1)
[2022-02-24 06:05] LABS: Alanine Aminotransferase 4 Units/L (7-52); Albumin 2.3 g/dL (3.5-5.7); Albumin/Globulin Ratio 1.4 (1.1-2.2); Alkaline Phosphatase 71 Units/L (34-104); Aspartate Amino Transferase 12 Units/L (13-39); BUN/Creatinine Ratio 14 (6-26); Bilirubin,Total 0.3 mg/dL (0.3-1.0); Blood Urea Nitrogen 10 mg/dL (8-23); Calcium 8.2 mg/dL (8.6-10.3); Carbon Dioxide 24 mEq/L (23-29); Chloride 107 mEq/L (98-107); Globulin 1.7 g/dL (2.4-3.5); Glucose 100 mg/dL (70-105); Magnesium 1.7 mg/dL (1.6-2.6); Osmolality,Calculated 283 (280-300); Phosphorous 2.9 mg/dL (2.7-4.5); Potassium 3.8 mEq/L (3.5-5.1); Sodium 137 mEq/L (136-145); eGFR For African Americans > 60 (> 60); eGFR For Non-African Americans > 60 (> 60)
[2022-02-24] MEDS: Simethicone 80 MG TAB.CHEW PO SCH ×4 (08:04→21:19)
[2022-02-24] MEDS: Folic Acid 1 MG TABLET PO SCH (08:05)
[2022-02-24] MEDS: carvediloL 6.25 MG TABLET PO SCH ×2 (08:06→16:03)
[2022-02-24] MEDS: Magnesium Oxide 400 MG TABLET PO SCH ×2 (08:06→21:20)
[2022-02-24] MEDS: Cholecalciferol (D-3) 1,000 UNIT (25MCG) TABLET PO SCH (08:06)
[2022-02-24] MEDS: Lactobacillus 1 EACH CAP.SPRINK PO SCH (08:06)
[2022-02-24] MEDS: Aspirin Enteric Coated 81 MG Tablet PO SCH (08:07)
[2022-02-24] MEDS: Apixaban 5 MG TABLET PO SCH ×2 (08:07→21:20)
[2022-02-24] MEDS: Multivit/Ca/Min/Fe/FA 1 TAB TABLET PO SCH (08:07)
[2022-02-24] MEDS: Gabapentin 300 MG CAPSULE PO SCH ×3 (08:07→21:20)
[2022-02-24] MEDS: DESVENLAFAXINE SUCCINATE PO SCH (08:08)
[2022-02-24] MEDS: (Brexpiprazole [Rexulti] 1 MG Tablet) PO SCH (08:08)
[2022-02-24] MEDS: Chlorhexidine Rinse 15 ML MOUTHWASH MM SCH ×2 (08:11→21:19)
[2022-02-24] MEDS: Nystatin POWDER 30 GM BOTTLE TP SCH ×2 (08:15→21:21)
[2022-02-24] MEDS: metroNIDAZOLE 500 MG TABLET PO SCH ×3 (08:16→21:20)
[2022-02-25] MEDS: Cefepime HCl 2,000 MG in 0.9 % Sodium Chloride 10 ML IVPB SCH ×3 (00:38→16:58)
[2022-02-25 02:35] LABS: Basophils # 0.1 K/mcL (0.0-0.2); Basophils % 1.4 %; Eosinophils # 0.2 K/mcL (0.0-0.6); Eosinophils % 4.5 %; Hematocrit 26.4 % (35.3-44.9); Hemoglobin 8.2 g/dL (11.5-15.4); Immature Granulocytes % 0.2 % (0-4); Lymphocytes % 23.4 %; Mean Corpuscular HGB Conc 31.1 g/dL (31.6-35.5); Mean Corpuscular Hemoglobin 28.5 pg (28.0-33.3); Mean Corpuscular Volume 91.7 fL (83.0-100.0); Mean Platelet Volume 9.2 fL (9.4-12.4); Monocytes # 0.5 K/mcL (0.0-1.3); Monocytes % 10.7 %; Neutrophils # 2.5 K/mcL (1.6-8.9); Platelet Count 270 K/mcL (140-400); Red Blood Count 2.88 M/mcL (3.82-4.97); Red Cell Distribution Width 15.9 % (11.5-14.5); Segmented Neutrophils % 59.8 %; White Blood Count 4.2 K/mcL (4.3-11.1)
[2022-02-25 02:52] LABS: Alanine Aminotransferase 5 Units/L (7-52); Albumin 2.2 g/dL (3.5-5.7); Albumin/Globulin Ratio 1.2 (1.1-2.2); Alkaline Phosphatase 59 Units/L (34-104); Aspartate Amino Transferase 11 Units/L (13-39); BUN/Creatinine Ratio 15 (6-26); Bilirubin,Total 0.4 mg/dL (0.3-1.0); Blood Urea Nitrogen 10 mg/dL (8-23); Calcium 8.3 mg/dL (8.6-10.3); Carbon Dioxide 26 mEq/L (23-29); Chloride 108 mEq/L (98-107); Globulin 1.9 g/dL (2.4-3.5); Glucose 96 mg/dL (70-105); Magnesium 1.6 mg/dL (1.6-2.6); Osmolality,Calculated 283 (280-300); Phosphorous 2.7 mg/dL (2.7-4.5); Potassium 3.8 mEq/L (3.5-5.1); Sodium 137 mEq/L (136-145); Total Protein 4.1 g/dL (6.4-8.9); eGFR For African Americans > 60 (> 60); eGFR For Non-African Americans > 60 (> 60)
[2022-02-25] MEDS: Chlorhexidine Rinse 15 ML MOUTHWASH MM SCH ×2 (08:51→20:49)
[2022-02-25] MEDS: Simethicone 80 MG TAB.CHEW PO SCH ×4 (08:51→20:49)
[2022-02-25] MEDS: Folic Acid 1 MG TABLET PO SCH (08:52)
[2022-02-25] MEDS: Lactobacillus 1 EACH CAP.SPRINK PO SCH (08:52)
[2022-02-25] MEDS: Cholecalciferol (D-3) 1,000 UNIT (25MCG) TABLET PO SCH (08:52)
[2022-02-25] MEDS: Aspirin Enteric Coated 81 MG Tablet PO SCH (08:53)
[2022-02-25] MEDS: Multivit/Ca/Min/Fe/FA 1 TAB TABLET PO SCH (08:53)
[2022-02-25] MEDS: Apixaban 5 MG TABLET PO SCH ×2 (08:53→20:47)
[2022-02-25] MEDS: carvediloL 6.25 MG TABLET PO SCH ×2 (08:53→17:00)
[2022-02-25] MEDS: metroNIDAZOLE 500 MG TABLET PO SCH ×2 (08:53→20:48)
[2022-02-25] MEDS: Gabapentin 300 MG CAPSULE PO SCH ×2 (08:54→20:49)
[2022-02-25] MEDS: Magnesium Oxide 400 MG TABLET PO SCH ×2 (08:57→20:49)
[2022-02-25] MEDS: Nystatin POWDER 30 GM BOTTLE TP SCH ×2 (08:58→20:52)
[2022-02-25] MEDS: (Brexpiprazole [Rexulti] 1 MG Tablet) PO SCH (08:58)
[2022-02-25] MEDS: DESVENLAFAXINE SUCCINATE PO SCH (08:59)
[2022-02-25] MEDS: *HR* HYDROcodone/Acet 5/325 mg TABLET PO PRN ×2 (09:06→17:00)
[2022-02-26] MEDS: Cefepime HCl 2,000 MG in 0.9 % Sodium Chloride 10 ML IVPB SCH ×3 (00:38→16:52)
[2022-02-26] MEDS: *HR* LORazepam 0.5 MG TABLET PO PRN ×2 (01:24→12:26)
[2022-02-26] MEDS: *HR* HYDROcodone/Acet 5/325 mg TABLET PO PRN ×3 (01:24→13:53)
[2022-02-26 02:48] LABS: Basophils # 0.1 K/mcL (0.0-0.2); Basophils % 1.2 %; Eosinophils # 0.2 K/mcL (0.0-0.6); Hematocrit 26.9 % (35.3-44.9); Hemoglobin 8.3 g/dL (11.5-15.4); Immature Granulocytes % 0.4 % (0-4); Lymphocytes # 0.8 K/mcL (0.6-4.6); Lymphocytes % 14.9 %; Mean Corpuscular HGB Conc 30.9 g/dL (31.6-35.5); Mean Corpuscular Hemoglobin 28.4 pg (28.0-33.3); Mean Corpuscular Volume 92.1 fL (83.0-100.0); Mean Platelet Volume 9.4 fL (9.4-12.4); Monocytes # 0.6 K/mcL (0.0-1.3); Monocytes % 11.3 %; Neutrophils # 3.5 K/mcL (1.6-8.9); Platelet Count 260 K/mcL (140-400); Red Blood Count 2.92 M/mcL (3.82-4.97); Red Cell Distribution Width 15.9 % (11.5-14.5); Segmented Neutrophils % 69.2 %
[2022-02-26 02:55] LABS: BUN/Creatinine Ratio 15 (6-26); Blood Urea Nitrogen 11 mg/dL (8-23); Calcium 8.3 mg/dL (8.6-10.3); Carbon Dioxide 27 mEq/L (23-29); Chloride 108 mEq/L (98-107); Glucose 101 mg/dL (70-105); Osmolality,Calculated 286 (280-300); Potassium 3.9 mEq/L (3.5-5.1); Sodium 138 mEq/L (136-145); eGFR For African Americans > 60 (> 60); eGFR For Non-African Americans > 60 (> 60)
[2022-02-26] MEDS: Simethicone 80 MG TAB.CHEW PO SCH ×4 (06:38→20:43)
[2022-02-26] MEDS: metroNIDAZOLE 500 MG TABLET PO SCH ×4 (07:53→20:43)
[2022-02-26] MEDS: Lactobacillus 1 EACH CAP.SPRINK PO SCH (07:54)
[2022-02-26] MEDS: Apixaban 5 MG TABLET PO SCH ×2 (07:54→20:43)
[2022-02-26] MEDS: Multivit/Ca/Min/Fe/FA 1 TAB TABLET PO SCH (07:54)
[2022-02-26] MEDS: carvediloL 6.25 MG TABLET PO SCH ×2 (07:55→16:51)
[2022-02-26] MEDS: Folic Acid 1 MG TABLET PO SCH (07:55)
[2022-02-26] MEDS: Magnesium Oxide 400 MG TABLET PO SCH ×2 (07:55→20:43)
[2022-02-26] MEDS: Cholecalciferol (D-3) 1,000 UNIT (25MCG) TABLET PO SCH (07:55)
[2022-02-26] MEDS: Gabapentin 300 MG CAPSULE PO SCH ×4 (07:55→20:43)
[2022-02-26] MEDS: Aspirin Enteric Coated 81 MG Tablet PO SCH (07:55)
[2022-02-26] MEDS: Chlorhexidine Rinse 15 ML MOUTHWASH MM SCH ×2 (07:56→20:44)
[2022-02-26] MEDS: (Brexpiprazole [Rexulti] 1 MG Tablet) PO SCH (08:10)
[2022-02-26] MEDS: DESVENLAFAXINE SUCCINATE PO SCH (08:10)
[2022-02-26] MEDS: Acetaminophen 325 MG TABLET PO PRN (12:26)
[2022-02-26 13:09] LABS: Bilirubin,Urine Negative (Negative); Blood,Urine Large (Negative); Budding Yeast,Urine Many per hpf (None Seen); Clarity,Urine Turbid (Clear); Color,Urine Yellow (Yellow); Glucose,Urine (UA) Normal (Normal); Hyaline Casts,Urine Moderate per lpf (None Seen); Ketones,Urine Trace mg/dL (Negative); Leukocyte Esterase,Urine Large (Negative); Mucus,Urine Moderate per lpf (None-Few); Nitrite,Urine Negative (Negative); Protein,Urine 100 mg/dL (Neg-Trace); RBC,Urine TNTC per hpf (0-3); Specific Gravity,Urine 1.022 (1.010-1.025); Urobilinogen,Urine Normal (Normal); WBC,Urine TNTC per hpf (0-3)
[2022-02-26] MEDS: Nystatin POWDER 30 GM BOTTLE TP SCH ×2 (16:51→20:45)
[2022-02-27] MEDS: Cefepime HCl 2,000 MG in 0.9 % Sodium Chloride 10 ML IVPB SCH ×4 (01:36→23:57)
[2022-02-27 03:43] LABS: Basophils # 0.1 K/mcL (0.0-0.2); Basophils % 1.8 %; Eosinophils # 0.2 K/mcL (0.0-0.6); Eosinophils % 3.4 %; Hematocrit 26.9 % (35.3-44.9); Hemoglobin 8.7 g/dL (11.5-15.4); Immature Granulocytes % 0.2 % (0-4); Lymphocytes # 0.8 K/mcL (0.6-4.6); Lymphocytes % 15.6 %; Mean Corpuscular HGB Conc 32.3 g/dL (31.6-35.5); Mean Corpuscular Hemoglobin 29.3 pg (28.0-33.3); Mean Corpuscular Volume 90.6 fL (83.0-100.0); Mean Platelet Volume 9.8 fL (9.4-12.4); Monocytes # 0.6 K/mcL (0.0-1.3); Monocytes % 11.6 %; Neutrophils # 3.4 K/mcL (1.6-8.9); Platelet Count 262 K/mcL (140-400); Red Blood Count 2.97 M/mcL (3.82-4.97); Red Cell Distribution Width 16.2 % (11.5-14.5); Segmented Neutrophils % 67.4 %
[2022-02-27 04:00] LABS: BUN/Creatinine Ratio 17 (6-26); Blood Urea Nitrogen 10 mg/dL (8-23); Calcium 8.3 mg/dL (8.6-10.3); Carbon Dioxide 24 mEq/L (23-29); Chloride 109 mEq/L (98-107); Glucose 91 mg/dL (70-105); Osmolality,Calculated 283 (280-300); Potassium 3.8 mEq/L (3.5-5.1); Sodium 137 mEq/L (136-145); eGFR For African Americans > 60 (> 60); eGFR For Non-African Americans > 60 (> 60)
[2022-02-27] MEDS: *HR* HYDROcodone/Acet 5/325 mg TABLET PO PRN ×3 (05:19→19:52)
[2022-02-27] MEDS: Simethicone 80 MG TAB.CHEW PO SCH ×4 (08:44→19:51)
[2022-02-27] MEDS: Magnesium Oxide 400 MG TABLET PO SCH ×2 (08:45→19:52)
[2022-02-27] MEDS: Gabapentin 300 MG CAPSULE PO SCH ×3 (08:45→19:51)
[2022-02-27] MEDS: Cholecalciferol (D-3) 1,000 UNIT (25MCG) TABLET PO SCH (08:45)
[2022-02-27] MEDS: Aspirin Enteric Coated 81 MG Tablet PO SCH (08:45)
[2022-02-27] MEDS: Apixaban 5 MG TABLET PO SCH ×2 (08:46→19:53)
[2022-02-27] MEDS: Folic Acid 1 MG TABLET PO SCH (08:46)
[2022-02-27] MEDS: Lactobacillus 1 EACH CAP.SPRINK PO SCH (08:46)
[2022-02-27] MEDS: Chlorhexidine Rinse 15 ML MOUTHWASH MM SCH ×2 (08:46→19:51)
[2022-02-27] MEDS: Multivit/Ca/Min/Fe/FA 1 TAB TABLET PO SCH (08:46)
[2022-02-27] MEDS: carvediloL 6.25 MG TABLET PO SCH ×2 (08:46→16:55)
[2022-02-27] MEDS: (Brexpiprazole [Rexulti] 1 MG Tablet) PO SCH (08:47)
[2022-02-27] MEDS: Nystatin POWDER 30 GM BOTTLE TP SCH ×2 (08:47→19:51)
[2022-02-27] MEDS: DESVENLAFAXINE SUCCINATE PO SCH (08:47)
[2022-02-27] MEDS: metroNIDAZOLE 500 MG TABLET PO SCH ×3 (08:50→19:50)
[2022-02-27] MEDS: Ondansetron ODT 4 MG TAB.RAPDIS SL PRN (10:14)
[2022-02-27] MEDS: Melatonin 3 MG TABLET PO PRN (19:52)
[2022-02-28] MEDS: *HR* HYDROcodone/Acet 5/325 mg TABLET PO PRN ×2 (03:10→12:26)
[2022-02-28 05:45] LABS: Basophils # 0.1 K/mcL (0.0-0.2); Basophils % 1.4 %; Eosinophils # 0.2 K/mcL (0.0-0.6); Eosinophils % 4.1 %; Hematocrit 27.4 % (35.3-44.9); Hemoglobin 8.9 g/dL (11.5-15.4); Immature Granulocytes % 0.2 % (0-4); Lymphocytes # 0.6 K/mcL (0.6-4.6); Lymphocytes % 14.2 %; Mean Corpuscular HGB Conc 32.5 g/dL (31.6-35.5); Mean Corpuscular Hemoglobin 29.5 pg (28.0-33.3); Mean Corpuscular Volume 90.7 fL (83.0-100.0); Mean Platelet Volume 9.9 fL (9.4-12.4); Monocytes # 0.6 K/mcL (0.0-1.3); Monocytes % 14.2 %; Neutrophils # 2.7 K/mcL (1.6-8.9); Platelet Count 242 K/mcL (140-400); Red Blood Count 3.02 M/mcL (3.82-4.97); Red Cell Distribution Width 16.5 % (11.5-14.5); Segmented Neutrophils % 65.9 %; White Blood Count 4.2 K/mcL (4.3-11.1)
[2022-02-28] MEDS: Simethicone 80 MG TAB.CHEW PO SCH ×4 (06:01→20:28)
[2022-02-28 06:57] LABS: BUN/Creatinine Ratio 19 (6-26); Blood Urea Nitrogen 13 mg/dL (8-23); Calcium 8.2 mg/dL (8.6-10.3); Carbon Dioxide 22 mEq/L (23-29); Chloride 109 mEq/L (98-107); Glucose 94 mg/dL (70-105); Osmolality,Calculated 286 (280-300); Potassium 3.6 mEq/L (3.5-5.1); Sodium 138 mEq/L (136-145); eGFR For African Americans > 60 (> 60); eGFR For Non-African Americans > 60 (> 60)
[2022-02-28] MEDS: metroNIDAZOLE 500 MG TABLET PO SCH ×2 (07:39→16:02)
[2022-02-28] MEDS: carvediloL 6.25 MG TABLET PO SCH ×2 (07:39→16:01)
[2022-02-28] MEDS: Lactobacillus 1 EACH CAP.SPRINK PO SCH (07:39)
[2022-02-28] MEDS: Apixaban 5 MG TABLET PO SCH ×2 (07:40→20:28)
[2022-02-28] MEDS: Cholecalciferol (D-3) 1,000 UNIT (25MCG) TABLET PO SCH (07:40)
[2022-02-28] MEDS: Gabapentin 300 MG CAPSULE PO SCH ×3 (07:40→20:28)
[2022-02-28] MEDS: Magnesium Oxide 400 MG TABLET PO SCH ×2 (07:40→20:28)
[2022-02-28] MEDS: Folic Acid 1 MG TABLET PO SCH (07:41)
[2022-02-28] MEDS: Multivit/Ca/Min/Fe/FA 1 TAB TABLET PO SCH (07:41)
[2022-02-28] MEDS: Cefepime HCl 2,000 MG in 0.9 % Sodium Chloride 10 ML IVPB SCH (07:41)
[2022-02-28] MEDS: Chlorhexidine Rinse 15 ML MOUTHWASH MM SCH ×2 (07:41→20:29)
[2022-02-28] MEDS: Aspirin Enteric Coated 81 MG Tablet PO SCH (07:41)
[2022-02-28] MEDS: DESVENLAFAXINE SUCCINATE PO SCH (07:44)
[2022-02-28] MEDS: (Brexpiprazole [Rexulti] 1 MG Tablet) PO SCH (07:44)
[2022-02-28] MEDS: Nystatin POWDER 30 GM BOTTLE TP SCH ×2 (07:55→20:30)
[2022-02-28] MEDS: *HR* LORazepam 0.5 MG TABLET PO PRN (15:25)
[2022-02-28] MEDS: Acetaminophen 325 MG TABLET PO PRN (15:25)
[2022-02-28] MEDS ORDERED: metroNIDAZOLE 500 MG TABLET PO SCH (21:00)
[2022-03-01] MEDS: *HR* HYDROcodone/Acet 5/325 mg TABLET PO PRN ×3 (02:05→16:22)
[2022-03-01] MEDS: Simethicone 80 MG TAB.CHEW PO SCH ×3 (08:32→16:22)
[2022-03-01] MEDS: Cholecalciferol (D-3) 1,000 UNIT (25MCG) TABLET PO SCH (08:33)
[2022-03-01] MEDS: Chlorhexidine Rinse 15 ML MOUTHWASH MM SCH (08:33)
[2022-03-01] MEDS: Aspirin Enteric Coated 81 MG Tablet PO SCH (08:35)
[2022-03-01] MEDS: Gabapentin 300 MG CAPSULE PO SCH ×2 (08:35→16:22)
[2022-03-01] MEDS: Lactobacillus 1 EACH CAP.SPRINK PO SCH (08:35)
[2022-03-01] MEDS: Multivit/Ca/Min/Fe/FA 1 TAB TABLET PO SCH (08:36)
[2022-03-01] MEDS: Apixaban 5 MG TABLET PO SCH (08:36)
[2022-03-01] MEDS: carvediloL 6.25 MG TABLET PO SCH (08:37)
[2022-03-01] MEDS: Magnesium Oxide 400 MG TABLET PO SCH (08:37)
[2022-03-01] MEDS: Folic Acid 1 MG TABLET PO SCH (08:38)
[2022-03-01] MEDS: DESVENLAFAXINE SUCCINATE PO SCH (08:39)
[2022-03-01] MEDS: (Brexpiprazole [Rexulti] 1 MG Tablet) PO SCH (08:39)
[2022-03-01] MEDS: Nystatin POWDER 30 GM BOTTLE TP SCH (08:47)
[2022-03-01 14:46] LABS: Influenza A PCR Negative (Negative); Influenza B PCR Negative (Negative); Resp. Syncytial Virus PCR Negative (Negative); SARS-CoV-2 by PCR (In House) Negative (Negative)
[2022-03-01 15:16] VITALS: BP 126/71; PULSE 71; TEMP 98.2; O2SAT 100
== END 2022-03-01 18:15 | DRG 871 ==
LOC: 3NENU 09:14 → EMEROOARM 09:14 → SUATTDRO 11:28 → 3NENU 13:40 → SUATTDRO 02-14 13:03
PROVIDERS: ADMIT Internal Medicine; ATTEND Internal Medicine

== ENCOUNTER 2022-03-13 12:06 | Observation (INO) ==
[2022-03-13] MEDS ORDERED: Naloxone 0.4 MG/ML INJ IVP PRN (17:57)
[2022-03-13] MEDS ORDERED: Hydrocortisone Rectal 2.5% CRM 28 GM TUBE RC PRN (19:26)
[2022-03-13] MEDS ORDERED: Ondansetron ODT 4 MG TAB.RAPDIS SL PRN (19:26)
[2022-03-13] MEDS ORDERED: Fluticasone Propionate Nasal 50 MCG/SPRAY BOTTLE NS PRN (19:26)
[2022-03-13] MEDS ORDERED: *HR* LORazepam 0.5 MG TABLET PO PRN (19:26)
[2022-03-13] MEDS: Gabapentin 300 MG CAPSULE PO SCH (20:21)
[2022-03-13] MEDS: *HR* OxyCODONE/APAP 5/325 TABLET PO PRN (20:21)
[2022-03-13] MEDS: traZODone 50 MG TABLET PO SCH (20:22)
[2022-03-13] MEDS: Apixaban 5 MG TABLET PO SCH (20:22)
[2022-03-13] MEDS: Simethicone 80 MG TAB.CHEW PO SCH (20:22)
[2022-03-13] MEDS: carvediloL 6.25 MG TABLET PO SCH (20:38)
[2022-03-13] MEDS: Silver Sulfadiazine 50 GM TUBE TP SCH (20:39)
[2022-03-13] MEDS ORDERED: metroNIDAZOLE 500 MG TABLET PO SCH (21:00)
[2022-03-13 22:18] LABS: Eosinophils # 0.1 K/mcL (0.0-0.6); Eosinophils % 4.5 %; Hematocrit 31.3 % (35.3-44.9); Hemoglobin 9.9 g/dL (11.5-15.4); Lymphocytes # 0.5 K/mcL (0.6-4.6); Lymphocytes % 18.6 %; Mean Corpuscular HGB Conc 31.6 g/dL (31.6-35.5); Mean Corpuscular Hemoglobin 28.4 pg (28.0-33.3); Mean Corpuscular Volume 89.7 fL (83.0-100.0); Mean Platelet Volume 9.4 fL (9.4-12.4); Monocytes # 0.2 K/mcL (0.0-1.3); Monocytes % 6.9 %; Platelet Count 246 K/mcL (140-400); Red Blood Count 3.49 M/mcL (3.82-4.97); Red Cell Distribution Width 15.3 % (11.5-14.5); White Blood Count 2.9 K/mcL (4.3-11.1)
[2022-03-13 22:25] LABS: INR 1.5; Prothrombin Time 16.2 Seconds (9.4-12.1)
[2022-03-13 22:32] LABS: Alanine Aminotransferase 11 Units/L (7-52); Albumin 2.2 g/dL (3.5-5.7); Albumin/Globulin Ratio 0.9 (1.1-2.2); Alkaline Phosphatase 77 Units/L (34-104); Aspartate Amino Transferase 17 Units/L (13-39); BUN/Creatinine Ratio 10 (6-26); Bilirubin,Total 0.3 mg/dL (0.3-1.0); Blood Urea Nitrogen 9 mg/dL (8-23); Calcium 8.3 mg/dL (8.6-10.3); Carbon Dioxide 28 mEq/L (23-29); Chloride 107 mEq/L (98-107); Globulin 2.4 g/dL (2.4-3.5); Glucose 97 mg/dL (70-105); Osmolality,Calculated 287 (280-300); Potassium 3.8 mEq/L (3.5-5.1); Sodium 139 mEq/L (136-145); Total Protein 4.6 g/dL (6.4-8.9); eGFR For African Americans > 60 (> 60); eGFR For Non-African Americans > 60 (> 60)
[2022-03-13] MEDS ORDERED: 0.9 % Sodium Chloride 1,000 ML IVC ONE (23:06)
[2022-03-13] MEDS: Cefepime HCl 2,000 MG in 0.9 % Sodium Chloride 10 ML IVP SCH (23:21)
[2022-03-14] MEDS ORDERED: 0.9 % Sodium Chloride 1,000 ML IVC ONE (04:43)
[2022-03-14 05:12] LABS: Hemoglobin 9.1 g/dL (11.5-15.4); Mean Corpuscular HGB Conc 31.4 g/dL (31.6-35.5); Mean Corpuscular Hemoglobin 28.7 pg (28.0-33.3); Mean Corpuscular Volume 91.5 fL (83.0-100.0); Mean Platelet Volume 9.7 fL (9.4-12.4); Platelet Count 218 K/mcL (140-400); Red Blood Count 3.17 M/mcL (3.82-4.97); Red Cell Distribution Width 15.3 % (11.5-14.5)
[2022-03-14 05:17] LABS: INR 1.6; Prothrombin Time 17.6 Seconds (9.4-12.1)
[2022-03-14 05:27] LABS: BUN/Creatinine Ratio 12 (6-26); Blood Urea Nitrogen 9 mg/dL (8-23); Calcium 7.8 mg/dL (8.6-10.3); Carbon Dioxide 26 mEq/L (23-29); Chloride 110 mEq/L (98-107); Glucose 88 mg/dL (70-105); Osmolality,Calculated 288 (280-300); Potassium 3.8 mEq/L (3.5-5.1); Sodium 140 mEq/L (136-145); eGFR For African Americans > 60 (> 60); eGFR For Non-African Americans > 60 (> 60)
[2022-03-14] MEDS: Cefepime HCl 2,000 MG in 0.9 % Sodium Chloride 10 ML IVP SCH (07:47)
[2022-03-14] MEDS: Lactobacillus 1 EACH CAP.SPRINK PO SCH (07:48)
[2022-03-14] MEDS: Aspirin Enteric Coated 81 MG Tablet PO SCH (07:48)
[2022-03-14] MEDS: Gabapentin 300 MG CAPSULE PO SCH ×3 (07:48→20:11)
[2022-03-14] MEDS: Cholecalciferol (D-3) 1,000 UNIT (25MCG) TABLET PO SCH (07:49)
[2022-03-14] MEDS: Folic Acid 1 MG TABLET PO SCH (07:49)
[2022-03-14] MEDS: metroNIDAZOLE 500 MG TABLET PO SCH ×2 (07:49→14:32)
[2022-03-14] MEDS: Multivit/Ca/Min/Fe/FA 1 TAB TABLET PO SCH (07:49)
[2022-03-14] MEDS: Simethicone 80 MG TAB.CHEW PO SCH ×4 (07:49→20:11)
[2022-03-14] MEDS: carvediloL 6.25 MG TABLET PO SCH ×2 (07:51→16:28)
[2022-03-14] MEDS ORDERED: Brexpiprazole [Rexulti] 1 MG Tablet PO SCH (09:00)
[2022-03-14] MEDS ORDERED: DESVENLAFAXINE SUCCINATE PO SCH (09:00)
[2022-03-14] MEDS: Capecitabine [Xeloda] 500 MG Tablet PO SCH ×2 (10:23→20:17)
[2022-03-14] MEDS: Silver Sulfadiazine 50 GM TUBE TP SCH ×2 (14:24→20:19)
[2022-03-14] MEDS ORDERED: Acetaminophen 325 MG TABLET PO PRN (14:57)
[2022-03-14 18:01] LABS: Bilirubin,Urine Negative (Negative); Blood,Urine Negative (Negative); Clarity,Urine Clear (Clear); Color,Urine Light-Yellow (Yellow); Glucose,Urine (UA) Normal (Normal); Ketones,Urine Negative (Negative); Leukocyte Esterase,Urine Negative (Negative); Nitrite,Urine Negative (Negative); PH,Urine 5.5 pH Units (5.0-8.0); Protein,Urine Trace mg/dL (Neg-Trace); Specific Gravity,Urine 1.008 (1.010-1.025); Urobilinogen,Urine Normal (Normal)
[2022-03-14] MEDS: *HR* OxyCODONE/APAP 5/325 TABLET PO PRN (20:11)
[2022-03-14] MEDS: traZODone 50 MG TABLET PO SCH (20:12)
[2022-03-14] MEDS: Apixaban 5 MG TABLET PO SCH (20:19)
[2022-03-15 05:46] LABS: Basophils % 1.5 %; Eosinophils # 0.1 K/mcL (0.0-0.6); Eosinophils % 5.5 %; Hematocrit 30.9 % (35.3-44.9); Hemoglobin 10.1 g/dL (11.5-15.4); Immature Granulocytes % 0.5 % (0-4); Lymphocytes # 0.3 K/mcL (0.6-4.6); Lymphocytes % 15.9 %; Mean Corpuscular HGB Conc 32.7 g/dL (31.6-35.5); Mean Corpuscular Hemoglobin 29.5 pg (28.0-33.3); Mean Corpuscular Volume 90.4 fL (83.0-100.0); Monocytes # 0.2 K/mcL (0.0-1.3); Monocytes % 10.4 %; Neutrophils # 1.3 K/mcL (1.6-8.9); Platelet Count 228 K/mcL (140-400); Red Blood Count 3.42 M/mcL (3.82-4.97); Red Cell Distribution Width 15.3 % (11.5-14.5); Segmented Neutrophils % 66.2 %
[2022-03-15] MEDS: carvediloL 6.25 MG TABLET PO SCH ×2 (08:02→18:06)
[2022-03-15] MEDS: Lactobacillus 1 EACH CAP.SPRINK PO SCH (08:04)
[2022-03-15] MEDS: Apixaban 5 MG TABLET PO SCH ×2 (08:04→20:03)
[2022-03-15] MEDS: Cholecalciferol (D-3) 1,000 UNIT (25MCG) TABLET PO SCH (08:04)
[2022-03-15] MEDS: Aspirin Enteric Coated 81 MG Tablet PO SCH (08:04)
[2022-03-15] MEDS: Multivit/Ca/Min/Fe/FA 1 TAB TABLET PO SCH (08:04)
[2022-03-15] MEDS: Folic Acid 1 MG TABLET PO SCH (08:04)
[2022-03-15] MEDS: Capecitabine [Xeloda] 500 MG Tablet PO SCH ×2 (08:05→20:06)
[2022-03-15] MEDS: Gabapentin 300 MG CAPSULE PO SCH ×3 (08:05→20:02)
[2022-03-15] MEDS: Simethicone 80 MG TAB.CHEW PO SCH ×4 (08:05→20:03)
[2022-03-15] MEDS: Silver Sulfadiazine 50 GM TUBE TP SCH ×2 (11:52→20:03)
[2022-03-15] MEDS: *HR* OxyCODONE/APAP 5/325 TABLET PO PRN ×2 (11:54→18:10)
[2022-03-15] MEDS: traZODone 50 MG TABLET PO SCH (20:03)
[2022-03-16 07:24] VITALS: BP 100/61; PULSE 90; TEMP 98.4; O2SAT 98
[2022-03-16] MEDS: *HR* OxyCODONE/APAP 5/325 TABLET PO PRN (09:24)
[2022-03-16] MEDS: Lactobacillus 1 EACH CAP.SPRINK PO SCH (09:24)
[2022-03-16] MEDS: carvediloL 6.25 MG TABLET PO SCH ×2 (09:24→09:29)
[2022-03-16] MEDS: Aspirin Enteric Coated 81 MG Tablet PO SCH (09:25)
[2022-03-16] MEDS: Folic Acid 1 MG TABLET PO SCH (09:25)
[2022-03-16] MEDS: Gabapentin 300 MG CAPSULE PO SCH (09:25)
[2022-03-16] MEDS: Cholecalciferol (D-3) 1,000 UNIT (25MCG) TABLET PO SCH (09:25)
[2022-03-16] MEDS: Apixaban 5 MG TABLET PO SCH (09:25)
[2022-03-16] MEDS: Simethicone 80 MG TAB.CHEW PO SCH (09:25)
[2022-03-16] MEDS: Multivit/Ca/Min/Fe/FA 1 TAB TABLET PO SCH (09:25)
[2022-03-16] MEDS: Capecitabine [Xeloda] 500 MG Tablet PO SCH (09:26)
[2022-03-16] MEDS: Silver Sulfadiazine 50 GM TUBE TP SCH (09:27)
[2022-03-16 10:25] LABS: Influenza A PCR Negative (Negative); Influenza B PCR Negative (Negative); Resp. Syncytial Virus PCR Negative (Negative)
[2022-03-16 10:47] LABS: SARS-CoV-2 by PCR (In House) Negative (Negative)
[2022-03-17] MEDS ORDERED: *HR* Methotrexate 2.5 MG TABLET PO SCH (09:00)
== END 2022-03-16 10:50 | disposition other institution (70) ==
LOC: 3ANU
PROVIDERS: ADMIT Internal Medicine; ATTEND Internal Medicine